=== PATIENT | female | born 1995 | race Caucasian/White ===

== ENCOUNTER 2024-03-25 18:17 | Emergency (ER) | payer OTHER, MEDICAID, SELFPAY ==
[2024-03-25 18:29] VITALS: BP 92/76; PULSE 71; RESP 18; TEMP 36.8; O2SAT 100
--- NOTE | 2024-03-25 18:36 | ED.URI ---
HPI - URI/Sore Throat General Chief Complaint: Upper Respiratory Infection Stated Complaint: congestion and ear pain Time Seen by Provider: 03/25/24 18:36 Source: patient Mode of arrival: ambulatory Limitations: no limitations History of Present Illness HPI Narrative: 28-year-old female presents with complaint of nasal congestion, sinus pressure, clogged sensation to bilateral ears for 4 days. Denies ear pain. Afebrile. Taking Claritin daily. Patient states she wants to make sure she does not have ear infection. States symptoms have improved since when they 1st started. All systems reviewed and negative except as noted above. Related Data Home Medications Medication Instructions Recorded Confirmed omeprazole 40 mg capsule,delayed 40 mg PO DAILY 03/25/24 03/25/24 release Allergies Allergy/AdvReac Type Severity Reaction Status Date / Time No Known Allergies Allergy Verified 03/25/24 18:36 Review of Systems Review of Systems: CONSTITUTIONAL: Denies fever, chills, or sweats. EYES: Denies visual changes, redness, or discharge. ENT: Denies rhinorrhea . Reports congestion, sinus congestion, ears clogged. Denies sore throat, or otalgia. CARDIOVASCULAR: Denies chest pain, palpitations, or edema. RESPIRATORY: Denies cough or dyspnea. GASTROINTESTINAL: Denies abdominal pain, nausea, vomiting, or diarrhea. GENITOURINARY: Denies dysuria or hematuria. SKIN: Denies rash or itching. MUSCULOSKELETAL: Denies back pain, joint pain, or myalgia. NEUROLOGIC: Denies headache, numbness, or weakness. PSYCHIATRIC: Denies anxiety or depression. All other systems reviewed are negative, except as documented in HPI. [facility] Family History Family History (Updated 02/26/24 @ 10:32 by Sury Hargrove CMA) Mother Cancer Social History Social History (Updated 02/26/24 @ 10:33 by Sury Hargrove CMA) Smoking status: Never smoker Tobacco type: cigarettes Smoking end date: 10/28/23 Alcohol intake: current Substance use: current Substance use type: marijuana Do You Feel Safe in your Home?: Yes Lack of Transportation: No Lack of Food: Never True Current Housing: I Have Housing Concerned About Future Housing: No Difficulty Paying Gas/Electric Bills: No Difficulty Paying for Meds: No Currently Unemployed: No Difficulty w/ Childcare or Family Care: No Comments At time of signature, agree with nursing past medical, surgical, social and family history. There is no relevant family history pertinent to the presenting complaint. Exam Narrative: GENERAL: This is a well-nourished, well-developed patient, in no apparent distress. HEAD: normocephalic, atraumatic. EYES: PERRL. Sclera clear/white. Vision is grossly intact. EARS: External ears normal, auditory canals clear and without drainage, fluid bilateral TM without erythema or perforation. Hearing grossly intact. NOSE: External nose normal with mild congestion, erythema to bilateral nares. THROAT: Mucous membranes moist, clear postnasal drainage NECK: Neck supple, non-tender without lymphadenopathy, masses or thyromegaly. CARDIOVASCULAR: Regular rate and rhythm without murmurs, gallops, or rubs. RESPIRATORY: Clear to auscultation. Breath sounds equal bilaterally. No wheezes, rales, or rhonchi. SKIN: warm, Dry, intact with no suspicious lesions or rash, good texture and turgor. NEURO: awake, alert, and oriented to person, place and time. There were no obvious focal neurologic abnormalities. EXTREMITIES: No joint tenderness, effusion, or edema noted. Course Course Level of Care: Express Care Visit Vital Signs Vital signs: Vital Signs Temperature 36.8 C 03/25/24 18: Pulse Rate 71 03/25/24 18: Respiratory Rate 18 03/25/24 18: Blood Pressure 92/76 L 03/25/24 18: Pulse Oximetry 100 03/25/24 18:29 Oxygen Delivery Room Air 03/25/24 18: Temperature 36.8 C 03/25/24 18:29 Pulse Rate 71
== END 2024-03-25 18:48 | disposition home or self-care (01) ==
PROVIDERS: Emergency Provider Nurse Practitioner Family
DX: J01.90 Acute sinusitis, unspecified (principal); H65.03 Acute serous otitis media, bilateral; Z87.891 Personal history of nicotine dependence; F12.90 Cannabis use, unspecified, uncomplicated
CPT/HCPCS: 99211; G0463

== ENCOUNTER 2024-06-23 15:06 | Emergency (ER) | payer OTHER, SELFPAY ==
--- NOTE | 2024-06-23 15:09 | ED.FEMALEGU ---
HPI - Female Genitourinary General Chief complaint: Urogenital-Female Stated complaint: uti symptoms Time Seen by Provider: 06/23/24 15:30 Source: patient, RN notes reviewed and old records reviewed Mode of arrival: ambulatory Limitations: no limitations History of Present Illness HPI Narrative: 28-year-old female presents to the [facility] with concerns for UTI or BV. Has a history of chronic BV. Denies any frequent or urgency. Has had vaginal discharge that is more than normal. Related Data Home Medications Medication Instructions Recorded Confirmed alprazolam 0.5 mg tablet 0.5 mg PO PRN PRN Anxiety 03/25/24 06/23/24 loratadine 10 mg tablet (Claritin) 10 mg PO DAILY PRN Allergy Symptoms 03/25/24 06/23/24 omeprazole 40 mg capsule,delayed 40 mg PO DAILY 03/25/24 06/23/24 release Allergies Allergy/AdvReac Type Severity Reaction Status Date / Time No Known Allergies Allergy Verified 06/23/24 15:13 Review of Systems Review of Systems: All systems reviewed & are unremarkable except as noted in HPI and below Constitutional: Constitutional: Reports no additional constitutional complaints Eyes: Eyes: Reports no additional eye complaints ENT: Reports system reviewed and no additional complaints, except as documented Cardiovascular: Cardiovascular: Reports no additional cardiovascular complaints, Denies chest pain and Denies dyspnea Respiratory: Respiratory: Reports no additional respiratory complaints, Denies chest congestion, Denies cough and Denies dyspnea Gastrointestinal: Gastrointestinal: Reports no additional gastrointestinal complaints, Denies abdominal pain, Denies nausea and Denies vomiting Genitourinary: Genitourinary: Reports as per HPI Musculoskeletal: Musculoskeletal: Reports no additional musculoskeletal complaints Integumentary/Breasts: Skin/Breast: Reports system reviewed and no additional complaints, except as docu Neurologic: Reports system reviewed and no additional complaints, except as documented Psychiatric: Psychiatric: Reports no additional psychiatric complaints Allergic/Immunologic: Allergic/Immunologic: Reports no additional allergic/immunologic complaints [facility] Family History Family History Mother Cancer Social History Social History Smoking status: Never smoker Tobacco type: cigarettes Smoking end date: 10/28/23 Alcohol intake: current Substance use: current Substance use type: marijuana Do You Feel Safe in your Home?: Yes Lack of Transportation: No Lack of Food: Never True Current Housing: I Have Housing Concerned About Future Housing: No Difficulty Paying Gas/Electric Bills: No Difficulty Paying for Meds: No Currently Unemployed: No Difficulty w/ Childcare or Family Care: No Comments At the time of my signature, I reviewed and agree with the nursing past medical, surgical, social, and family history. There is no relevant family history pertinent to the patient complaint. Exam Const: General: cooperative, healthy appearing, comfortable, no acute distress, well developed, alert and well nourished Nutritional Appearance: well nourished Orientation/consciousness: patient oriented x3 Limitations: no limitations HENMT: Head: normal to inspection Ears: hearing grossly normal bilaterally and external ears normal Face/Nose/Sinus: Normal external nose present, Normal nares present, Normal nasal mucous membranes and turbinates present, normal facial exam and face symmetric Face and sinus: normal facial exam and face symmetric Eyes: General: appearance normal, both eyes and all related structures Alignment and Position: alignment normal Periorbital: periorbital findings normal Neck: Neck: normal visual inspection, full ROM, no lymphadenopathy and no meningeal signs Chest: Chest palpation & inspection: normal inspection of the chest R
[2024-06-23 15:38] VITALS: BP 110/66; PULSE 88; RESP 16; TEMP 36.7; O2SAT 98
[2024-06-24 11:36] LABS: EDUAAPPEAR Clear; EDUABILI Negative; EDUABLOOD Negative; EDUACOLOR1 Dark; EDUAGLUCOSE Negative; EDUAKETONE Negative; EDUALEUKO Negative; EDUANITRATE Negative; EDUAPROTEIN Negative; EDUAUROBILI 0.2
== END 2024-06-23 15:46 | disposition home or self-care (01) ==
PROVIDERS: Emergency Provider Nurse Practitioner
DX: N76.0 Acute vaginitis (principal); Z87.891 Personal history of nicotine dependence; F12.90 Cannabis use, unspecified, uncomplicated
CPT/HCPCS: 81003; 99213; G0463

== ENCOUNTER 2024-10-20 14:51 | Emergency (ER) | payer OTHER, SELFPAY ==
[2024-10-20 15:10] VITALS: BP 116/70; PULSE 82; RESP 16; TEMP 36.8; O2SAT 100
[2024-10-20 15:23] LABS: EDUAAPPEAR Sediment; EDUABILI Negative (Negative); EDUABLOOD 2+ (Negative); EDUACOLOR1 Dark; EDUAGLUCOSE Negative (Negative); EDUAKETONE Negative (Negative); EDUALEUKO 2+ (Negative); EDUANITRATE Positive (Negative); EDUAPH 5.5; EDUAPROTEIN Trace (Negative); EDUASPGRAVITY 1.025; EDUAUROBILI 0.2
--- NOTE | 2024-10-20 15:23 | ED.FEMALEGU ---
HPI - Female Genitourinary General Chief complaint: Urogenital-Female Stated complaint: Possible UTI Time Seen by Provider: 10/20/24 15:23 Source: patient Mode of arrival: ambulatory Limitations: no limitations History of Present Illness HPI Narrative: 29-year-old female presents with complaint of urinary frequency, urgency, dysuria for the past 2 days. Afebrile. denies abdominal pain. Denies nausea vomiting. All systems reviewed and negative except as noted above. Related Data Home Medications ?Medication ?Instructions ?Recorded ?Confirmed ?Last Taken ?Type alprazolam 0.5 mg tablet 0.5 mg PO PRN PRN Anxiety 03/25/24 06/23/24 Unknown History loratadine 10 mg tablet (Claritin) 10 mg PO DAILY PRN Allergy Symptoms 03/25/24 06/23/24 Unknown History omeprazole 40 mg capsule,delayed 40 mg PO DAILY 03/25/24 06/23/24 Unknown History release Allergies Allergy/AdvReac Type Severity Reaction Status Date / Time No Known Allergies Allergy Verified 10/20/24 15:12 Review of Systems Review of Systems: CONSTITUTIONAL: Denies fever, chills, or sweats. EYES: Denies visual changes, redness, or discharge. ENT: Denies rhinorrhea, congestion, sore throat, or otalgia. CARDIOVASCULAR: Denies chest pain, palpitations, or edema. RESPIRATORY: Denies cough or dyspnea. GASTROINTESTINAL: Denies abdominal pain, nausea, vomiting, or diarrhea. GENITOURINARY: Reports dysuria, frequency, urgency. Denies hematuria. SKIN: Denies rash or itching. MUSCULOSKELETAL: Denies back pain, joint pain, or myalgia. NEUROLOGIC: Denies headache, numbness, or weakness. PSYCHIATRIC: Denies anxiety or depression. All other systems reviewed are negative, except as documented in HPI. [facility] Family History Family History Mother Cancer Social History Social History Smoking status: Never smoker Tobacco type: cigarettes Smoking end date: 10/28/23 Alcohol intake: current Substance use: current Substance use type: marijuana Do You Feel Safe in your Home?: Yes Lack of Transportation: No Lack of Food: Never True Current Housing: I Have Housing Concerned About Future Housing: No Difficulty Paying Gas/Electric Bills: No Difficulty Paying for Meds: No Currently Unemployed: No Difficulty w/ Childcare or Family Care: No Comments At time of signature, agree with nursing past medical, surgical, social and family history. There is no relevant family history pertinent to the presenting complaint. Exam Narrative: GENERAL: This is a well-nourished, well-developed patient, in no apparent distress. HEAD: normocephalic, atraumatic. EYES: PERRL. Sclera clear/white. Vision is grossly intact. EARS: External ears normal NOSE: External nose normal NECK: Neck supple, non-tender without lymphadenopathy, masses or thyromegaly. CARDIOVASCULAR: Regular rate and rhythm without murmurs, gallops, or rubs. RESPIRATORY: Clear to auscultation. Breath sounds equal bilaterally. No wheezes, rales, or rhonchi. SKIN: warm, Dry, intact with no suspicious lesions or rash, good texture and turgor. NEURO: awake, alert, and oriented to person, place and time. There were no obvious focal neurologic abnormalities. EXTREMITIES: No joint tenderness, effusion, or edema noted. Course Course Level of Care: Express Care Visit Vital Signs Vital signs: Vital Signs Temperature 36.8 C 10/20/24 15:10 Pulse Rate 82 10/20/24 15:10 Respiratory Rate 16 10/20/24 15:10 Blood Pressure 116/70 10/20/24 15:10 Pulse Oximetry 100 10/20/24 15:10 Oxygen Delivery Room Air 10/20/24 15:10 Temperature 36.8 C 10/20/24 15:10 Pulse Rate 82 10/20/24 15:10 Respiratory Rate 16 10/20/24 15:10 Blood Pressure 116/70 10/20/24 15:10 Pulse Oximetry 100 10/20/24 15:10 Oxygen Delivery Room Air 10/20/24 15:10 reviewed MDM - Female Genitourinary MDM Narrative Medical decision making narrative: urinalysis positive for leukocytes, nitrites, blood. Will treat patient with antibiotic due to patient's symptoms and lab findings. Urine culture ordered. Patient well-appearing, nontoxic. Patient is aware of diagnosis, understands and agrees to treatment plan. Anticipatory guidance given. Patient agrees to follow-up as directed and is aware of reasons to seek care at the emergency department. Portions of this record may have been created with voice recognition software Differential Diagnosis Differential diagnosis: Likely urinary tract infection Lab Data Labs: Lab Results 10/20/24 Range/Units 15:19 POC Urine Color Dark POC Urine Clarity Sediment POC Urine pH 5.5 POC Ur Specif [place] 1.025 POC Urine Protein Trace (Negative) POC Ur Glucose (UA) Negative (Negative) POC Urine Ketones Negative (Negative) POC Urine Blood 2+ (Negative) POC Urine Nitrite Positive (Negative) POC Urine Bilirubin Negative (Negative) POC Urine Urobilinogen 0.2 POC U Leukocyte Esteras 2+ (Negative) Discharge Plan Discharge Clinical Impression: Urinary tract infection Patient Disposition: Home, Self-Care Condition: Stable Instructions: Antibiotic Form, Urinary Tract Infection in Women (ED) Additional Instructions: take medications as prescribed. Take ibuprofen or Tylenol every 6-8 hours as needed for pain and fever. Drink at least 64 oz of water a day. Follow-up with your primary care physician if symptoms are not improving. Patient Language: Surinamese Prescriptions: New phenazopyridine [Pyridium] 200 mg tablet 200 mg PO TID PRN (Reason: pain) 3 Days Qty: 10 0RF amoxicillin-pot clavulanate [Augmentin] 500-125 mg tablet 1 tablet PO BID 5 Days Qty: 10 0RF No Action omeprazole 40 mg capsule,delayed release(DR/EC) 40 mg PO DAILY alprazolam 0.5 mg tablet 0.5 mg PO PRN PRN (Reason: Anxiety) loratadine [Claritin] 10 mg Tablet 10 mg PO DAILY PRN (Reason: Allergy Symptoms) Follow-up/Referrals: PHYSICIAN,ROAD HOGGER OPERATOR [Primary Care Provider] - Time of Disposition: 15:28
== END 2024-10-20 15:36 | disposition home or self-care (01) ==
PROVIDERS: Emergency Provider Nurse Practitioner Family
DX: N39.0 Urinary tract infection, site not specified (principal); B96.20 Unspecified Escherichia coli [E. coli] as the cause of diseases classified elsewhere
CPT/HCPCS: 81003; 87077; 87086; 87186; 99213; G0463

== ENCOUNTER 2024-10-31 15:02 | Emergency (ER) | payer OTHER, SELFPAY ==
--- NOTE | 2024-10-31 15:20 | ED_ITS ---
HPI - Female Genitourinary General Chief complaint: Urogenital-Female Stated complaint: UTI / Fever Time Seen by Provider: 10/31/24 15:20 Source: patient Mode of arrival: ambulatory Limitations: no limitations History of Present Illness HPI Narrative: Charlee is a 29-year-old female patient presenting to the clinic today with complaints of possible UTI/fever. She reports was treated for UTI and initially given Augmentin on October 20. Urine culture grew E coli and this was not susceptible so she was placed on Bactrim. Has 1 more dose of Bactrim left but she is complaining still continuing to have burning with urination, pelvic pain, back pain, and lower abdominal pain. She reports last menstrual period was approximately 2 weeks ago. Has had intercourse with a new partner and states that she noticed some discharge prior to having intercourse with this new partner. States that she is having some vaginal discharge but is not necessarily abnormal for her. Related Data Home Medications ?Medication ?Instructions ?Recorded ?Confirmed ?Last Taken ?Type alprazolam 0.5 mg tablet 0.5 mg PO PRN PRN Anxiety 03/25/24 06/23/24 Unknown H istory loratadine 10 mg tablet (Claritin) 10 mg PO DAILY PRN Allergy Symptoms 03/25/24 06/23/24 Unknown History omeprazole 40 mg capsule,delayed 40 mg PO DAILY 03/25/24 06/23/24 Unknown History release Allergies Allergy/AdvReac Type Severity Reaction Status Date / Time No Known Allergies Allergy Verified 10/31/24 15:36 Review of Systems Review of Systems: Pertinent positives per HPI. Patient denies any rash, headache, visual changes, dizziness, cough, runny nose, sore throat, shortness of breath, chest pain, palpitations, nausea, vomiting, diarrhea, constipation, abdominal pain PMFSH Family History Family History Mother Cancer Social History Social History Smoking status: Never smoker Tobacco type: cigarettes Smoking end date: 10/28/23 Alcohol intake: current Substance use: current Substance use type: marijuana Do You Feel Safe in your Home?: Yes Lack of Transportation: No Lack of Food: Never True Current Housing: I Have Housing Concerned About Future Housing: No Difficulty Paying Gas/Electric Bills: No Difficulty Paying for Meds: No Currently Unemployed: No Difficulty w/ Childcare or Family Care: No Comments At the time of my signature, I reviewed and agree with the nursing past medical, surgical, social, and family history. There is no relevant family history pertinent to the patient complaint. Exam Narrative: General: Well-developed, well nourished, in no apparent distress. Head: Normocephalic, atraumatic. Cardio: Regular rate and rhythm, s1 and s2 normal, no murmur appreciated. Resp: Clear to auscultation bilaterally, no rhonchi, rales, wheezing or rubs. Abdomen: Soft, pliable, bowel sounds present in all quadrants, tender to palpation over the suprapubic bladder, no organomegly, no CVAT tenderness. : Pelvic exam performed with (Jennifer ROTHMAN) at bedside. Verbal consent obtained from patient. Normal external female genitalia without lesions or masses, Urinary meatus: patent without discharge, Vagina: No lesions, masses, or purulent discharge, white discharge noted Cervix: pink without mass, lesions, purulent discharge- white discharge noted, no tenderness. Course Course Emergency Course: Portions of this record may have been created with voice recognition software. Level of Care: Express Care Visit Vital Signs Vital signs: Vital signs reviewed MDM - Female Genitourinary MDM Narrative Medical decision making narrative: At the time of visit patient is resting comfortably on the exam table. Patient appears to be nontoxic. Labs: Urinalysis negative for any sign of infection or blood. Gonorrhea, chlamydia, bacterial vaginosis, genital culture, and Trichomonas was sent to the lab Medications: Rocephin 500 mg IM given in the clinic today Plan: I suspect patient could possibly have PID. Prescription for doxycycline and Flagyl was sent to the pharmacy. Rocephin 500 mg IM given in the clinic today to cover for gonorrhea. Supportive measures were discussed with the patient and they voiced understanding discharge instructions and agrees to treatment plan. Return precautions reviewed Differential Diagnosis Differential diagnosis: Likely urinary tract infection, bacterial vaginosis, trichomoniasis, cervicitis, ovarian cyst, vaginitis, ruptured ovarian cyst, cyst of Bartholin's gland, cystitis, dysmenorrhea and other (STI) Discharge Plan Discharge Clinical Impression: Vaginal discharge, Pelvic pain Patient Disposition: Home, Self-Care Condition: Stable Instructions: Antibiotic Form, Pelvic Pain in Women (ED), Vaginal Discharge (ED) Additional Instructions: We have tested/treated you for STIs in the clinic today. Rocephin 500 mg IM was given to cover for chlamydia Will send in prescription for doxycycline and Flagyl. Doxycycline will cover chlamydia, and Flagyl cover Trichomonas/bacterial vaginosis. Avoid any sexual activity- includes oral, anal, or vaginal intercourse until you get results back and have completed any additional recommended treatment regimens. We will contact you if testing is positive and make sure your treatment was appropriate for the type of STI. If symptoms worsen after treatment recommend reevaluation with your PCP or Express care. Patient Language: Mauritanian Prescriptions: New metronidazole 500 mg tablet 500 mg PO Q12H 7 Days Qty: 14 0RF doxycycline monohydrate 100 mg capsule 100 mg PO BID 7 Days Qty: 14 0RF No Action omeprazole 40 mg capsule,delayed release(DR/EC) 40 mg PO DAILY alprazolam 0.5 mg tablet 0.5 mg PO PRN PRN (Reason: Anxiety) loratadine [Claritin] 10 mg Tablet 10 mg PO DAILY PRN (Reason: Allergy Symptoms) phenazopyridine [Pyridium] 200 mg tablet 200 mg PO TID PRN (Reason: pain) 3 Days Qty: 10 0RF sulfamethoxazole-trimethoprim [Bactrim DS] 800-160 mg tablet 1 tablet PO Q12H Qty: 14 0RF Follow-up/Referrals: Michael,Kae Reyes [Other] Stand Alone Forms: Work/School Release IP Time of Disposition: 16:13 Quality NIHSS Nursing Documentation ED NIHSS nursing documentation: reviewed/agree
[2024-10-31 15:24] VITALS: BP 108/60; PULSE 96; RESP 18; TEMP 36.9; O2SAT 100
[2024-10-31 15:33] LABS: EDUAAPPEAR Clear; EDUABILI Negative (Negative); EDUABLOOD Negative (Negative); EDUACOLOR1 Yellow; EDUAGLUCOSE Negative (Negative); EDUAKETONE Negative (Negative); EDUALEUKO Negative (Negative); EDUANITRATE Negative (Negative); EDUAPROTEIN Negative (Negative); EDUASPGRAVITY 1.025; EDUAUROBILI 0.2
[2024-10-31] MEDS: cefTRIAXone 500 MG, LIDOCAINE 1% LOCAL INJ 1 ML IM (16:12)
[2024-10-31 19:45] LABS: Trichomonas Vag PCR NOT DETECTED (NOT DETECTE)
[2024-10-31 20:09] LABS: Chlamydia trachomatis NOT DETECTED (NOT DETECTE); Neisseria gonorrhoeae PCR NOT DETECTED (NOT DETECTE)
[2024-11-04 07:39] LABS: Bacterial Vaginosis POSITIVE (NEGATIVE)
--- OUTSIDE RECORDS SUMMARY | 2024-11-07 23:36 | XMS_ITS | Encounter Summary ---
Author Organization [facility] Address [address] [place] [address]. [place], [place] [id number] [place] [id number] Care Team Providers Care Operations Assistant Name Role Phone Georges Triana MD Primary Care Provider Unavailable Encounter Details Date Type Department Care Team (Late st Contact Info) Description 10/08/2000 Abstract [facility] [place] [address] Sandip Skaggs MD [address] [place] [address] [place] [address] Social History Tobacco Use Types Packs/Day Years Used Date Smoking Tobacco: Never Assessed Comments Unknown Sex and Gender Information Value Date Recorded Sex Assigned at Not on file Legal Sex Female 8:27 PM CDT Gender Identity Not on file Sexual Orientation Not on file documented as of this encounter Plan of Treatment Not on file documented as of this encounter Visit Diagnoses Not on filedocumented in this encounter Care Teams Operations Assistant Relationship Specialty Start Date End Date Georges Triana MD PCP - General 12/01/14 documented as of this encounter
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
--- OUTSIDE RECORDS SUMMARY | 2024-11-07 23:36 | XMS_ITS | Encounter Summary ---
Author Organization [facility] Address [address] [place] [address]. [place], [place] [address] [place] [id number] Care Team Providers Care Health Promotion Manager Name Role Phone Rudy Tang NP Primary Care Provider + Reason for Visit * Reason Comments Abdominal Pain Encounter Details Date Type Department Care Team (Late st Contact Info) Description 07/25/2023 8:01 PM CDT - 07/25/2023 10:21 PM CDT Emergency [facility] [place] [address] Karli Diop PA [address] [place] [id number] Abdominal Pain Discharge Disposition: Home or Self Care (Routine Discharge) Social History Tobacco Use Types Packs/Day Years Used Date Smoking Tobacco: Every Day Smokeless Tobacco: Never Tobacco Cessation:Ready to Q uit: Not Asked; Counseling Given: Not Answered Alcohol Use Standard Drinks/Week Comments No 0 (1 standard drink = 0.6 oz pur e alcohol) Comments No Sex and Gender Information Value Date Recorded Sex Assigned at Not on file Legal Sex Female 8:27 PM CDT Gender Identity Not on file Sexual Orientation Not on file documented as of this encounter Last Filed Vital Signs Vital Sign Reading Time Taken Comments Blood Pressure 104/51 07/25/2023 10:00 PM CDT Pulse 73 07/25/2023 10:00 PM CDT Temperature 36.3 ??C (97.3 ??F) 07/25/2023 7:54 PM CD T Respiratory Rate 17 07/25/2023 10:00 PM CDT Oxygen Saturation 97% 07/25/2023 10:00 PM CDT Inhaled Oxygen Concentration - - Weight 77.1 kg (170 lb) 07/25/2023 7:54 PM CDT Height 157.5 cm (5' 2 ) 07/25/2023 7:54 PM CDT Body Mass Index 31.09 07/25/2023 7:54 PM CDT documented in this encounter Discharge Instructions * Discharge Instructions* KAMILAH Mauricio - 07/25/2023 10:00 PM CDT Please avoid caffeine, smoking, alcohol, NSAIDs, aspirin, fatty foods, spicy foods, etc as this cancause further irritation to your stomach lining. Eat a bland diet (bread, rice, applesauce, broths,etc) until your symptoms improve. Increase your fluids and get plenty of rest. Please follow up with your primary and the GI doctor as discussed. We will contact you if any of your results are positive or require changes to your treatment plan. If your symptoms persist or worsen, please return to the ER. Thank you for allowing me to care for you today. I have attached some suggested discharge instructions for you to use to aid in your recovery. Please take any medications prescribed to you as directed. If your symptoms are not improving or are significantly worsening, please return to the ER for further evaluation and treatment. Thank you, Karli Diop PA-C * Attachments The following attachments cannot be sent through Care Everywhere. * Gastritis Discharge Instructions (Nigerian) * Acid Reflux and GERD in Adults Discharge Instructions (Nigerian) documented in this encounter Medications at Time of Discharge hyoscyamine (LEVSIN) 0.125 MG TABLET DISPERSIBLE Take 1 tablet (0.125 mg total) by mouth every 4 (four) hours. ALPRAZolam (XANAX) 0.25 MG tablet Take 1 tablet (0.25 mg total) by mouth daily as needed. omeprazole (PRILOSEC) 40 MG capsule Take 1 capsule (40 mg total) by mouth daily. pantoprazole EC (PROTONIX) 40 MG tablet Take 1 tablet (40 mg total) by mouth daily for 15 days. 15 tablet 07/25/2023 08/09/2023 documented as of this encounter ED Notes * Roberto Palmer RN - 07/25/2023 10:11 PM CDT Provider discussed today's findings with the patient/family. The patient has been given informationregarding their treatment, follow up and concerning symptoms for which they should seek urgent or emergent attention. I have expressed the the importance of seeking attention should there be any new,or worsening symptoms or persistence of their condition. Patient verbalized understanding of the discharge instructions. * KAMILAH Mauricio - 07/25/2023 10:00 PM CDT [place], [place] EMERGENCY DEPARTMENT ENCOUNTER HISTORICAL INFORMATION Primary Care Doctor: RUDY TANG NP Patient information was obtained primarily from the patient, nursing notes. History/Exam limitations: None Provider at Bedside Date/Time Event User Comments 07/25/231954 Provider at Bedside Assessing Patient KARLI DIOP -- CHIEF COMPLAINT Abdominal Pain Chief Complaint Patient presents with Abdominal Pain HPI Charlee Barney is a 27-year-old female who presents with multiple complaints, most notably upperabdominal pain and acid reflux ongoing for many years. Patient states that she was prescribed Prilosec by her primary care provider but does not take it all the time. She was also prescribed hyoscyamine and alprazolam for anxiety. Any change in her symptoms from baseline. She also reports some mild dysuria for 1-1/2 weeks. She denies any hematuria, lower abdominal pain, vaginal bleeding, or fevers. She has never seen a GI doctor. States that she feels like her primary care provider has not explain her disease well and she is unsure what foods she can eat. PAST MEDICAL HISTORY Past Medical History: Diagnosis Date GERD (gastroesophageal reflux disease) IBS (irritable bowel syndrome) SURGICAL HISTORY History reviewed. No pertinent surgical history. CURRENT MEDICATIONS No current facility-administered medications for this encounter. Current Outpatient Medications: hyoscyamine (LEVSIN) 0.125 MG TABLET DISPERSIBLE, Take 1 tablet (0.125 mg total) by mouth every 4 (four) hours., Disp: , Rfl: pantoprazole EC (PROTONIX) 40 MG tablet, Take 1 tablet (40 mg total) by mouth daily for 15 days., Disp: 15 tablet, Rfl: 0 ALPRAZolam (XANAX) 0.25 MG tablet, Take 1 tablet (0.25 mg total) by mouth daily as needed., Disp: ,Rfl: omeprazole (PRILOSEC) 40 MG capsule, Take 1 capsule (40 mg total) by mouth daily., Disp: , Rfl: ALLERGIES No Known Allergies FAMILY HISTORY No family history on file. SOCIAL HISTORY Social History Socioeconomic History Marital status: Single Tobacco Use Smoking status: Every Day Smokeless tobacco: Never Substance and Sexual Activity Alcohol use: No Drug use: Yes Types: Marijuana REVIEW OF SYMPTOMS provided by: Patient General: No chills, fever, fatigue. Skin: No rashes. No erythema or edema. HEENT: No ear pain, sore throat, or sinus congestion. No vision changes. Respiratory: No cough. No shortness of breath. Cardiac: No chest pain. No palpitations. GI: + abd pain. No nausea, vomiting, or diarrhea. : + dysuria. No hematuria. MSK: No joint pain. No back or neck pain. Neuro: No headache. No dizziness or weakness. No slurred speech. No facial droop Physical Exam VITAL SIGNS: Filed Vitals: 07/25/23195307/25/232039 BP: 125/85 104/65 Pulse: 98 64 Resp: 20 18 Temp: 97.3 ??F (36.3 ??C) TempSrc: Temporal SpO2: 95% 96% Weight: 77.1 kg (170 lb) Height: 5' 2 (1.575 m) General: Awake and alert. Well nourished. Non-toxic appearing. No acute distress Head: Normocephalic. Atraumatic. Skin: Warm, dry. Good skin turgor. No visible rashes Eyes: Sclera normal. Conjunctiva normal. Lids and lashes normal. Lens normal. EOMs within normal limit. Ears: Normal external canals bilaterally. Hearing intact. Nose: Nose normal. No active discharge Oropharynx: Voice normal. Lips normal. Oral mucosa is pink and moist. Respiratory: No respiratory distress. CTA in all lung portillo. Cardiac: Normal rate, normal rhythm. No murmurs. Abdominal: Soft, non-distended. Mild upper abd tenderness without guarding. No palpable masses. MSK: ROM normal. No obvious deformities Neuro: AOX3. Answers all questions appropriately. Speech is normal. Mood/affect: mood/affect normal. Behavior normal. LABORATORY Results for orders placed or performed during the hospital encounter of 07/25/23 CBC W/DIFF AUTOMATED Result Value Ref Range WBC 9.6 4.5 - 11.0 x10'3/uL RBC 4.60 4.20 - 5.40 x10'6/uL HGB 14.1 12.0 - 16.0 G/DL HCT 42.5 38.0 - 48.0 % MCV 92.4 81.0 - 99.0 FL MCH 30.7 27.0 - 31.0 PG MCHC 33.2 32.0 - 36.0 G/DL RDW 12.5 11.5 - 14.5 % PLT 389 130 - 400 x10'3/uL MPV 9.5 9.3 - 12.2 FL DIFFERENTIAL TYPE AUTOMATED DIFFERENTIAL NEUTROPHILS 53.3 % LYMPHOCYTES 36.5 % MONOCYTES 6.1 % EOSINOPHILS 3.5 % BASOPHILS 0.4 % IMMATURE GRANS 0.2 % ABS. NEUTROPHILS TOTAL 5.11 1.80 - 7.70 x10'3/uL ABS. LYMPHOCYTES 3.51 1.00 - 4.80 x10'3/uL ABS. MONOCYTES 0.59 0.24 - 0.86 x10'3/uL ABS. EOSINOPHILS 0.34 0.04 - 0.36 x10'3/uL ABS. BASOPHILS 0.04 0.01 - 0.08 x10'3/uL ABS. IMMATURE GRANULOCYTES 0.02 0.00 - 0.49 x10'3/uL COMPREHENSIVE METABOLIC PANEL Result Value Ref Range GLUCOSE 71 70 - 99 MG/DL BUN 15 7 - 18 MG/DL CREATININE S/P/B 0.75 0.55 - 1.02 MG/DL SODIUM S/P/B 136 136 - 145 MMOL/L POTASSIUM S/P/B 3.9 3.5 - 5.1 MMOL/L CHLORIDE S/P/B 106 100 - 108 MMOL/L CO2 26.6 21 - 32 MMOL/L CALCIUM S/P/B 8.9 8.5 - 10.1 MG/DL BILIRUBIN TOTAL S/P/B 0.2 0.2 - 1.2 MG/DL TOTAL PROTEIN S/P/B 7.8 6.4 - 8.2 G/DL ALBUMIN S/P/B 3.7 3.4 - 5.0 G/DL AST 15 15 - 37 U/L ALT 29 14 - 55 U/L ALKALINE PHOSPHATASE S/P/B 79 50 - 136 U/L ANION GAP 3.4 (L) 5 - 15 MMOL/L BUN CREATININE RATIO 20.1 6 - 26 A/G RATIO 0.9 (L) 1.0 - 2.0 RATIO GFR ESTIMATE >90 >90 ML/MIN/1.73 M2 LIPASE Result Value Ref Range LIPASE 43 13 - 75 UNITS/L URINALYSIS Result Value Ref Range Specimen Type URINE CLEAN CATCH COLOR (U) LIGHT YELLOW TRANSPARENCY CLEAR SPECIFIC GRAVITY (U) 1.023 1.001 - 1.030 U PH 5.5 5.0 - 9.0 LEUKOCYTES (U) 500 (A) NEGATIVE NITRITES NEGATIVE NEGATIVE PROTEIN RANDOM (U) NEGATIVE <30 MG/DL GLUCOSE (U) NORMAL NORMAL MG/DL KETONES (U) NEGATIVE NEGATIVE MG/DL UROBILINOGEN NORMAL NORMAL MG/DL BILIRUBIN (U) NEGATIVE NEGATIVE MG/DL BLOOD (U) NEGATIVE NEGATIVE CULTURE & SENSITIVITY INDICATED? SPECIMEN SETUP FOR CULTURE WBC/HPF 4 <6 /HPF RBC/HPF 7 (H) <6 /HPF SQUAMOUS EPITHELIALS FEW /HPF POCT urine Result Value Ref Range URINE HCG TEST NEGATIVE Internal Control: [facility] ED Course as of 07/25/23 2200 Shona Jul 25, 20232056 URINE HCG TEST: NEGATIVE [AP] 2056 URINALYSIS(!) May be special service representative of UTI vs contamination [AP] 2057 CBC W/DIFF AUTOMATED No leukocytosis or anemia [AP] 2110 LIPASE: 43 Within normal limits. [AP] 2110 COMPREHENSIVE METABOLIC PANEL(!) No significant abnormalities. [AP] 2155 Discussed lab work with patient. She reports improvement of symptoms following Protonix medication. Lipase is normal. No abnormalities noted on CMP. Pyuria noted on urinalysis without white blood cells. Symptoms are not significantly concerning for urinary tract infection. Patient reports somemild dysuria ongoing for a week and a half. Offered antibiotic treatment for possible urinary tractinfection versus waiting for urine culture and she opted to wait for urinary culture. Recommended follow-up with primary care provider and she states she has an appointment next week. We discussed other causes of pyuria including bacterial vaginosis or other STDs. Recommended follow-up with primary care for more thorough STD evaluation as patient does not have any outward concerns for STDs. She is agreeable to this plan. Negative test. No leukocytosis. No indication for CT scan at this time as symptoms have been ongoing for many years without any acute change. Afebrile, nontoxic-appearing. Will discharge home with Prilosec and recommended follow-up with GI which referral was provided. Explicit return precautions discussed and patient verbalized understanding. [AP] ED Course User Index [AP] KAMILAH Mauricio Amount and/or Complexity of Data Reviewed Source of information/historian: Patient Clinical lab tests: I interpreted all labs ordered/resulted and reviewed these with the patient/patient's guardian. Impression/Disposition SNOMED CT(R) 1. Gastritis GASTRITIS 2. GERD (gastroesophageal reflux disease) GASTROESOPHAGEAL REFLUX DISEASE 3. Pyuria PYURIA Disposition: Discharge Medications pantoprazole (PROTONIX) injection 40 mg (40 mg Intravenous Given 07/25/232020) Current Discharge Medication List START taking these medications Details pantoprazole EC (PROTONIX) 40 MG tablet Take 1 tablet (40 mg total) by mouth daily for 15 days. Qty: 15 tablet, Refills: 0 Class: Eprescribe Pharmacy: [facility]/pharmacy #[id number] - [place], [place] - [facility] GISELL FLORES ( #: [phone]) KAMILAH MAURICIO Disclaimer: Portions of this note were created using [employer], a speech recognition software. Occasional wrong word or sound alike substitutions may have occurred due to the inherent limitations of voice recognition software. Please read the note carefully and use context to recognize when substitutions may have occurred. KAMILAH Mauricio 07/25/232201 Cosigned by Pavel Denise MD,PHD at 07/26/2023 7:05 AM CDT * Marya Ott RN - 07/25/2023 7:55 PM CDT Pt comes in with complaints of upper abdominal pain and heart burn that she has had problems with for years. Pt states she also has a smell to her urine that she says is abnormal. Pt denies nausea/vomiting. Pt states all she takes TUMS and Omeprazole that she does not take every day. Pt states she also has IBS and takes hycosamine for this. documented in this encounter Plan of Treatment Not on file documented as of this encounter Procedures Procedure Name Priority Date/Time Associated Diagnosis Comments POCT URINE (BACK OFFICE) STAT 07/25/2023 8:27 PM CDT HC URINALYSIS AUTO W/O MICRO STAT 07/25/2023 8:23 PM CDT URINE BACTERIA CULTURE Routine 8:23 PM CDT COMPREHENSIVE METABOLIC PANEL STAT 07/25/2023 8:23 PM CDT CBC W/DIFF AUTOMATED STAT 07/25/2023 8:23 PM CDT LIPASE STAT 07/25/2023 8:23 PM CDT documented in this encounter Results * POCT urine (07/25/2023 8:27 PM CDT) URINE HCG TEST NEGATIVE Internal Control: VALID us Karli TRIANA POINT OF CARE TEST ORDERABLES Final Result * CULTURE URINE (07/25/2023 8:23 PM CDT) SPEC DESCRIPTION URINE CLEAN CATCH 07/25/2023 8:48 PM CDT [facility] SPECIAL REQUESTS NO SPECIAL REQUEST 07/25/2023 8:48 PM CDT [facility] CULTURE RESULT POLYMICROBIAL GROWTH CONSISTENT WITH NORMAL GENITAL MARITZA. ?? SUSCEPTIBILITIES NOT ROUTINELY PERFORMED. 07/28/2023 7:34 AM CDT [facility] URINE SPECIMEN OBTAINED BY CLEAN CATCH PROCEDURE / Unknown 07/25/2023 8:23 PM CDT 07/25/2023 8:48 PM CDT Karli TRIANA MICROBIOLOGY - GENERAL ORDERAB LES Final Result [facility] [address] [place] [address], [place] [phone] * (ABNORMAL) URINALYSIS (07/25/2023 8:23 PM CDT) SPECIMEN TYPE URINE CLEAN CATCH 07/25/2023 8:27 PM CDT [facility] COLOR (U) LIGHT YELLOW 07/25/2023 8:47 PM CDT [facility] TRANSPARENCY CLEAR 07/25/2023 8:47 PM CDT [facility] SPECIFIC GRAVITY (U) 1.023 1.001 - 1.030 07/25/2023 8:47 PM CDT [facility] U PH 5.5 5.0 - 9.0 07/25/2023 8:47 PM CDT [facility] LEUKOCYTES (U) 500(A) NEGATIVE 07/25/2023 8:47 PM CDT [facility] NITRITES NEGATIVE NEGATIVE 07/25/2023 8:47 PM CDT [facility] PROTEIN RANDOM (U) NEGATIVE <30 MG/DL 07/25/2023 8:47 PM CDT [facility] GLUCOSE (U) NORMAL NORMAL MG/DL 07/25/2023 8:47 PM CDT [facility] KETONES MG/DL (U) NEGATIVE NEGATIVE MG/DL 07/25/2023 8:47 PM CDT [facility] UROBILINOGEN NORMAL NORMAL MG/DL 07/25/2023 8:47 PM CDT [facility] BILIRUBIN (U) NEGATIVE NEGATIVE MG/DL 07/25/2023 8:47 PM CDT [facility] BLOOD (U) NEGATIVE NEGATIVE 07/25/2023 8:47 PM CDT [facility] CULTURE & SENSITIVITY INDICATED? SPECIMEN SETUP FOR CULTURE 07/25/2023 8:47 PM CDT [facility] WBC/HPF 4 <6 /HPF 07/25/2023 8:47 PM CDT [facility] RBC/HPF 7(H) <6 /HPF 07/25/2023 8:47 PM CDT [facility] SQUAMOUS EPITHELIALS FEW /HPF 07/25/2023 8:47 PM CDT [facility] URINE SPECIMEN OBTAINED BY CLEAN CATCH PROCEDURE / Unknown 07/25/2023 8:23 PM CDT us Karli TRIANA URINE ORDERABLES Final Result [facility] [address] [place] [address], [place] [phone] * LIPASE (07/25/2023 8:23 PM CDT) LIPASE 43 13 - 75 UNITS/L 07/25/2023 9:00 PM CDT [facility] 07/25/2023 8:23 PM CDT us Karli TRIANA LABORATORY Final Result [facility] [address] [place] [address], * (ABNORMAL) COMPREHENSIVE METABOLIC PANEL (07/25/2023 8:23 PM CDT) GLUCOSE 71 70 - 99 MG/DL 07/25/2023 9:00 PM CDT [facility] BUN 15 7 - 18 MG/DL 07/25/2023 9:00 PM CDT [facility] CREATININE S/P/B 0.75 0.55 - 1.02 MG/DL 07/25/2023 9:00 PM CDT [facility] SODIUM S/P/B 136 136 - 145 MMOL/L 07/25/2023 9:00 PM CDT [facility] POTASSIUM S/P/B 3.9 3.5 - 5.1 MMOL/L 07/25/2023 9:00 PM CDT [facility] CHLORIDE S/P/B 106 100 - 108 MMOL/L 07/25/2023 9:00 PM CDT [facility] CO2 26.6 21 - 32 MMOL/L 07/25/2023 9:00 PM CDT [facility] CALCIUM S/P/B 8.9 8.5 - 10.1 MG/DL 07/25/2023 9:00 PM CDT [facility] BILIRUBIN TOTAL S/P/B 0.2 0.2 - 1.2 MG/DL 07/25/2023 9:00 PM CDT [facility] Comment: THIS ASSAY IS NOT RECOMMENDED FOR PATIENTS UNDERGOING TREATMENT WITH ELTROMBOPAG DUE TO THE POTENTIAL FOR FALSELY ELEVATED RESULTS. TOTAL PROTEIN S/P/B 7.8 6.4 - 8.2 G/DL 07/25/2023 9:00 PM T [facility] ALBUMIN S/P/B 3.7 3.4 - 5.0 G/DL 07/25/2023 9:00 PM T [facility] AST 15 15 - 37 U/L 07/25/2023 9:00 PM T [facility] ALT 29 14 - 55 U/L 07/25/2023 9:00 PM T [facility] ALKALINE PHOSPHATASE S/P/B 79 50 - 136 U/L 07/25/2023 9:00 PM T [facility] ANION GAP 3.4(L) 5 - 15 MMOL/L 07/25/2023 9:00 PM T [facility] BUN CREATININE RATIO 20.1 6 - 26 07/25/2023 9:00 PM [facility] A/G RATIO 0.9(L) 1.0 - 2.0 RATIO 07/25/2023 9:00 PM [facility] GFR ESTIMATE >90 >90 ML/MIN/1.7 3 M2 07/25/2023 9:00 PM T [facility] Comment: NOTE: eGFR is not calculated for patients <18 years of age. This is an estimated GFR calculation using the new CKD EPI creatinine equation without race and so does not require a correction factor for race. This estimated GFR should not be used for calculating drug doses. 07/25/2023 8:23 PM CDT us Karli TRIANA LABORATORY Final Result [facility] [address] [place] [address], [place] [phone] * CBC W/DIFF AUTOMATED (07/25/2023 8:23 PM CDT) [facility] WBC 9.6 4.5 - 11.0 x10'3/uL 07/25/2023 8:44 PM CDT [facility] RBC 4.60 4.20 - 5.40 x10'6/uL 07/25/2023 8:44 PM CDT [facility] HGB 14.1 12.0 - 16.0 G/DL 07/25/2023 8:44 PM CDT [facility] HCT 42.5 38.0 - 48.0 % 07/25/2023 8:44 PM CDT [facility] MCV 92.4 81.0 - 99.0 FL 07/25/2023 8:44 PM CDT [facility] MCH 30.7 27.0 - 31.0 PG 07/25/2023 8:44 PM CDT [facility] MCHC 33.2 32.0 - 36.0 G/DL 07/25/2023 8:44 PM CDT [facility] RDW 12.5 11.5 - 14.5 % 07/25/2023 8:44 PM CDT [facility] PLT 389 130 - 400 x10'3/uL 07/25/2023 8:44 PM CDT [facility] MPV 9.5 9.3 - 12.2 FL 07/25/2023 8:44 PM CDT [facility] DIFFERENTIAL TYPE AUTOMATED DIFFERENTIAL 07/25/2023 8:44 PM CDT [facility] NEUTROPHILS % 53.3 % 07/25/2023 8:44 PM CDT [facility] LYMPHOCYTES % 36.5 % 07/25/2023 8:44 PM CDT [facility] MONOCYTES % 6.1 % 07/25/2023 8:44 PM CDT [facility] EOSINOPHILS 3.5 % 07/25/2023 8:44 PM CDT [facility] BASOPHILS 0.4 % 07/25/2023 8:44 PM CDT [facility] IMMATURE GRANS % 0.2 % 07/25/20 8:44 PM CDT [facility] ABS. NEUTROPHILS TOTAL 5.11 1.80 - 7.70 x10'3/uL 07/25/2023 8:44 PM CDT [facility] ABS. LYMPHOCYTES 3.51 1.00 - 4.80 x10'3/uL 07/25/2023 8:44 PM CDT [facility] ABS. MONOCYTES 0.59 0.24 - 0.86 x10'3/uL 07/25/2023 8:44 PM CDT [facility] ABS. EOSINOPHILS 0.34 0.04 - 0.36 x10'3/uL 07/25/2023 8:44 PM CDT [facility] ABS. BASOPHILS 0.04 0.01 - 0.08 x10'3/uL 07/25/2023 8:44 PM CDT [facility] ABS. IMMATURE GRANULOCYTES 0.02 0.00 - 0.49 x10'3/uL 07/25/2023 8:44 PM CDT [facility] 07/25/2023 8:23 PM CDT us Karli TRIANA LABORATORY Final Result [facility] [address] [place] [address], [place] [phone] documented in this encounter Visit Diagnoses Diagnosis Gastritis- Primary Unspecified gastritis and gastroduodenitis without mention of hemorrhage GERD (gastroesophageal reflux disease) Esophageal reflux Pyuria Other nonspecific finding on examination of urine documented in this encounter Administered Medications Inactive Administered Medications - up to 3 most recent administrations Medication Order MAR Action Action Date Dose Rate Site pantoprazole (PROTONIX) injection 40 mg 40 mg, Intravenous, Once, 1 dose, On Shona 07/25/23 at 1999, Reconstitute each 40 mg vial with 10 mL normal saline to a final concentration of 4 mg/mL. Administer intravenously over a period of a least 2 minutes. Given 07/25/2023 8:21 PM CDT 40 mg documented in this encounter Active and Recently Administered Medications Times are shown in CDT. Scheduled Medication Order 07/23/2023 07/24/2023 07/25/2023 pantoprazole (PROTONIX) injection 40 mg (COMPLETED) 40 mg, Intravenous, Once, 1 dose, On Shona 07/25/23 at 1999, Reconstitute each 40 mg vial with 10 mL normal saline to a final concentration of 4 mg/mL. Administer intravenously over a period of a least 2 minutes. 2020 (Given - Provid er: Carol Miranda RN) documented in this encounter Care Teams Health Promotion Manager Relationship Specialty Start Date End Date Rudy Tang NP PCP - General FAMILY PRACTICE 07/25/23 documented as of this encounter
--- OUTSIDE RECORDS SUMMARY | 2024-11-07 23:36 | XMS_ITS | Encounter Summary ---
Author Organization [facility] Address [address] [place] [address]. [place], [place] [address] [place] [id number] Care Team Providers Care Biology Adjunct Instructor Name Role Phone Georges Triana MD Primary Care Provider Unavailable Encounter Details Date Type Department Care Team (Late st Contact Info) Description 12/01/2014 Emergency [facility] [place] [address] Shree Mcgarry MD Social History Tobacco Use Types Packs/Day Years Used Date Smoking Tobacco: Never Assessed Comments Unknown Sex and Gender Information Value Date Recorded Sex Assigned at Not on file Legal Sex Female 8:27 PM CDT Gender Identity Not on file Sexual Orientation Not on file documented as of this encounter Plan of Treatment Not on file documented as of this encounter Visit Diagnoses Diagnosis Infection of genitourinary tract antepartum (HHS/HCC) Infections of genitourinary tract antepartum documented in this encounter Care Teams Biology Adjunct Instructor Relationship Specialty Start Date End Date Georges Triana MD PCP - General 12/01/14 documented as of this encounter
--- OUTSIDE RECORDS SUMMARY | 2024-11-07 23:36 | XMS_ITS | Clinical Summary ---
Author Organization [facility] Address [address] [place] [address]. [place], [place] [id number] [place] [address] Care Team Providers Care Burrer Marker Axle Name Role Phone Kae Rodriguez NP Primary Care Provider + Allergies No known active allergies Medications ALPRAZolam (XANAX) 0.25 MG tablet Take 1 tablet (0.25 mg total) by mouth daily as needed. Active omeprazole (PRILOSEC) 40 MG capsule Take 1 capsule (40 mg total) by mouth daily. Active hyoscyamine (LEVSIN) 0.125 MG TABLET DISPERSIBLE Take 1 tablet (0.125 mg total) by mouth every 4 (four) hours. Active Active Problems No known active problems Social History Tobacco Use Types Packs/Day Years [...] on file Sexual Orientation Not on file Last Filed Vital Signs Vital Sign Reading [...] Mass Index 31.09 07/25/2023 7:54 PM CDT Plan of Treatment Health Maintenance Due Date Last Done Comments Cervical Cancer Screening Pap Smear (Age 21 to 29) Every 3 Years 1995 Cervical Cancer Screening 1995 Annual Physical 1998 Pneumococcal Vaccine: Pediatrics (0 to 5 Years) and At-Risk Patients (6 to 64 Years) (1 of 2 - PCV) 2001 HPV Vaccines (2 - 3-dose series) 08/01/2012 07/04/2012 Hepatitis C 2013 COVID-19 Vaccine (2 - season) 2024 04/01/2023 Influenza Adult (#1) 2024 11/14/2002 DTaP, Tdap and Td Vaccines (8 - Td or Tdap) 06/16/2025 06/16/2015, 06/23/2010, 06/24/2001, Additional history exists Hepatitis B Vaccines Completed 04/28/1996, 1995, 1995 Meningococcal Vaccine Completed 07/04/2012, 010 RSV Immunizations Under 20 Months Aged Out No longer eligible based on patient's age to complete this topic Insurance [employer] Care Teams Burrer Marker Axle Relationship Specialty Start Date End Date Kae Rodriguez EXTENSION WORKER PCP - General FAMILY PRACTICE 07/25/23
--- OUTSIDE RECORDS SUMMARY | 2024-11-07 23:36 | XMS_ITS | Encounter Summary ---
Author Organization [facility] Address [address] [place] [address]. [place], [place] [address] [place] [address] Care Team Providers Care Drum Sander Name Role Phone Georges Triana MD Primary Care Provider Unavailable Encounter Details Date Type Department Care Team (Late st Contact Info) Description 08/31/2017 [place] [address] Georges Triana MD Social History Tobacco Use Types Packs/Day [...] on filedocumented in this encounter Care Teams Drum Sander Relationship Specialty Start Date End Date Georges Triana MD PCP - General 12/01/14 documented as of this encounter
--- OUTSIDE RECORDS SUMMARY | 2024-11-07 23:36 | XMS_ITS | Encounter Summary ---
Author Organization [facility] Address [address] [place] [address]. [place], [place] [id number] [place] [address] Care Team Providers Care Wall Insulation Sprayer Name Role Phone Kae Rodriguez NP Primary Care Provider + Encounter Details Date Type Department Care Team (Latest Contact Info) Description 07/25/2023 Travel Social History Tobacco Use Types Packs/Day Years [...] on filedocumented in this encounter Care Teams Wall Insulation Sprayer Relationship Specialty Start Date End Date Kae Rodriguez NP PCP - General FAMILY PRACTICE 07/25/23 documented as of this encounter
--- OUTSIDE RECORDS SUMMARY | 2024-11-07 23:37 | XMS_ITS | Encounter Summary ---
Author Organization [facility] Address [address] [place] [address] Phone Care Team Providers Care Coremaker Apprentice Name Role Phone Kathleen Bailey NP Primary Care Provider [phone] [phone] Reason for Visit * Consultation (Routine) - Closed Specialty Diagnoses / Procedures Referred By Capri cyr Referred To Contact Pediatric Dermatology Diagnoses Rash and other nonspecific skin eruption Say Watters MD Phone: tel: fax: [facility] (All Locations) Referral ID Status Reason Start Date Expiration Date V isits Requested Visits Authorized [id number] Closed Specialty Services Required 02/15/2022 03/17/2023 25 25 Encounter Details Date Type Department Care Team (Latest Contact Info) Description 02/07/2023 2:30 PM CDT Procedure visit [facility] Dermatology [address] [place] [address] [address] [place] [phone] Alla Hong MD [address] [place] [address] [address] [place] [address] Seborrheic dermatitis, unspecified (Primary Dx); Tinea versicolor; Neoplasm of uncertain behavior of skin Social History Tobacco Use Types Packs/Day Years Used Date Smoking Tobacco: Never Assessed Comments Unknown Sex and Gender Information Value Date Recorded Sex Assigned at Not on file Legal Sex Female 6:14 PM HEALTH EVALUATOR Gender Identity Not on file Sexual Orientation Not on file documented as of this encounter Patient Instructions * Patient Instructions* Allyson Bosch MD - 02/07/2023 2:30 PM CDT [facility] Alla Hansen MD [facility] Division of Dermatology, Department of Medicine [phone] SKIN CARE REGIMEN MORNIN. Wash face with a gentle cleanser 2. Then apply an antioxidant (eg. The Ordinary Vitamin C 23% Suspension, Skinceuticals Vitamin CE Ferulic acid) 3. After the anti-oxidant dries, apply an SPF at least 30 or higher 4. You can apply makeup after sunscreen EVENIN. Wash face with a cleanser 2. Once skin is dry apply a Vitamin A based cream (retinol & adapalene are over the counter; tretinoin is prescription). These products can cause dryness and irritation, so use every other night or as tolerated. 3. It is ok to apply a moisturizer on top that contains hyaluronic acid 4. The nights you do not use a vitamin A cream, you can use a moisturizer alone or a growth factor/peptide product SUGGESTED PRODUCTS: Cleanser: Neutrogena Hydroboost Hydrating Cleansing Gel Antioxidant: SkinCeuticals CE Ferulic, Skinceuticals Resveratrol, Revision Vitamin C+ Correcting Complex 30%, The Ordinary Vitamin C 23% suspension, Maelove Glow Maker SPF: EltaMD UV Clear SPF 46, Revision Intellishade TruPhysical, Alastin Hydratint, La Clarisa Posay UltraSheer Antihelios Retinol: SkinMedica, Differin 0.1% gel (adapalene), Neutrogena Rapid Wrinkle Repair Moisturizer: SkinCeuticals Triple Lipid Restore, SkinMedica HA5, Maelove Battery Technician Gel, La Clarisa Posay Hyal B5 Growth Factor/peptides: SkinMedica TNS Essential Serum or Recovery Complex, Sente Dermal Repair Cream [facility] Providers: [facility] (including Urgent Care) and [facility] [phone] for appointments documented in this encounter Ordered Prescriptions Prescription Sig Dispense Quantity Refills Last Filled Start Date End Date clobetasoL (TEMOVATE) 0.05 % external solutionIndication s:Dermatosis of the Scalp Apply topically 2 (two) times a day As needed for scalp itching 50 mL 1 02/07/2023 ketoconazole (NIZORAL) 2 % creamIndications:T inea versicolor Apply topically 2 (two) times a day To back for yeast rash 30 g 1 02/07/2023 3 documented in this encounter Progress Notes * Alla Hansen MD - 02/07/2023 2:30 PM CDT [facility] [address] [place] [address] EXCISION CONSULT NOTE NAME: Charlee Neumann Barney : 1995 CC: cyst of right chest HPI: Charlee Barney presents today for evaluation of cyst on the right chest. Duration: few years. Symptoms: growing. Prior treatment: none. Patient also notes: -Rash of back, diagnosed as yeast in the past. -Telangiectasia of left forehead -KP of bilateral arms and legs -Itchy scalp -Asks about skin recommendations Personal history of skin cancer: none Family history of skin cancer: none ROS: Constitutional: No fever, no chills, no unintended weight loss Neurological: No headache, no dizziness, no vision changes Cardiovascular: No chest pain, no palpitations Respiratory: No shortness of breath, no coughing Allergies/Medications/PMH: Reviewed in EMR. PHYSICAL EXAM: Vitals Signs: There were no vitals taken for this visit. GENERAL: Appears well. No acute distress. ORIENTATION: Alert and oriented x3. MOOD/AFFECT: Normal affect. CHAPMAN SKIN TYPE: II FACE: Telangiectasia of left forehead EARS: No abnormalities noted. SCALP/HAIR: No abnormalities noted. EYES/EYELIDS: No scleral icterus. No abnormalities noted of conjunctiva or eyelids. LIPS/ORAL MUCOSA: No abnormalities noted. NECK: No abnormalities noted. CHEST: pink subcutaneous nodule of right chest DIGITS/NAILS: No cyanosis, clubbing, or nail abnormality. EXTREMITIES (RUE): accentuation of hair follicles bilateral upper arm EXTREMITIES (LUE): No abnormalities noted. --Lesion identified and verified with patient's assistance using a handheld mirror and/or referringprovider photos. Patient agrees with location. ASSESSMENT AND PLAN: 1. Neoplasm of the right chest - Treatment options discussed included: standard excision - Will plan for a standard excision - Indications for surgery include: growing - Likely repair options reviewed including: complex linear repair, intermediate linear repair - Risks and benefits were discussed including, but not limited to, scarring, bleeding, infection, pain, swelling, bruising, dyspigmentation, asymmetry, deformity, recurrence, need for further treatment, allergy, motor and sensory nerve injury. - The patient and/or family members demonstrated understanding of the points discussed - Time was provided for patient questions - Special considerations: NO pacemaker, defibrillator, epi sensitivity, allergy to anesthesia, latex allergy 2. Prophylaxis for surgery. - None required 3. Medication restrictions for surgery. - none 4. Skin Care -Provided daily skin care recommendations -Wash face in am with a cleanser, then apply antioxidant (eg. Vitamin CE Ferulic) -Once anti-oxidant dries, apply SPF at least 30 or higher -Wash face in pm with cleanser then apply Vitamin A based cream (eg. Retinol or tretinoin) -Start retinol OTC qhs, SER including dryness and irritation. Recommend using every other night or as tolerated -Ok to apply moisturizer on top containing hyaluronic acid (eg. Neutrogena Hydroboost) Photos obtained, pre-operative instructions provided. 5. Telangiectasia -Consider PDL (VBeam) laser to improve appearance of lesions, needs at least 3 treatments. -Laser reviewed at length including treatment expectations, need for multiple treatment and risks including pain, swelling, redness, blistering, hyper/hypopigmentation, texture change, scarring. 6. Tinea versicolor -Considered oral fluconazole though interactions noted with lexapro and norco, will send topical ketoconazole cream BID 7. Seborrheic dermatitis -Start topical clobetasol solution daily for itch Patient will proceed with surgery today. EXCISION WITH CLOSURE NAME: Charlee Barney : 1995 ATTENDING SURGEON: Alla Hansen MD RECORD CHANGER ASSEMBLER SURGEON: Allyson Bosch MD PROCEDURE: Excision with intermediate layered linear closure PREOPERATIVE DIAGNOSIS: cyst POSTOPERATIVE DIAGNOSIS: Same INDICATION: growing SIZE OF LESION PRE-OP: 0.9 cm x 1.4 cm EXCISED SIZE: 1.1 cm x 1.6 cm LOCATION: right chest PERIOPERATIVE MEDICATIONS: None ANESTHESIA: 0.5% mepivacaine and epinephrine 1:200,000 TYPE OF CLOSURE: Layered closure with -Dermal - 4-0 Monocryl -Epidermal - 4-0 Prolene DRESSING: Vaseline and a pressure dressing COMMENT: After informed consent was obtained, the patient was positioned on the surgery table in a supine position. Using a surgical marking pen, a design was created around the lesion. The lesional area was then prepped with alcohol and infiltrated with 1.0% polocaine with epinephrine, 1:200,000 as above. Thereafter, the skin was cleaned with Chlorhexidine and draped with sterile towels. Using a15 blade scalpel, an incision was made directly over the lesion through the full thickness of the dermis extending to the subcutaneous tissue. The 15 blade and scissors were used to dissect the subcutaneous tissue away from the lesion. The specimen was obtained and then placed in formalin and sent for routine histopathological evaluation. An intermediate layered closure was performed using sutures and skin stitch as outlined above. The final suture line measured 3.5 cm. Estimated blood loss wasminimal. No complications were entertained. Wound care instructions were provided for the patient in verbal and written form including a 24-hour telephone number in case of emergency. The patient will return as needed.The patient will return for suture removal in 14 days. POST-OP PRESCRIPTIONS: Tylenol prn for pain. Alla Hansen MD Forming Operatorglass science engineer Division of Dermatology documented in this encounter Plan of Treatment Not on file documented as of this encounter Procedures Procedure Name Priority Date/Time Associated Diagnosis Comments SURGICAL PATHOLOGY Routine 02/07/2023 12 :00 AM CDT Neoplasm of uncertain behavior of skin documented in this encounter Results * Surgical pathology (02/07/2023 12:00 AM CDT) Tissue (Skin, excision) 02/07/2023 02/08/2023 8:56 AM CDT Narrative [facility] - 02/12/2023 4:43 PM CDT EPIC results best viewed via link to PDF [facility] [address] [place], [place] [address]., ??[address], [place] [address] ? [email or web address] Note to Patients: ??This report may contain a detailed description of human tissue sent by a health care provider to the laboratory for pathologic evaluation. ??The content of this report is essential for diagnosis and may provide important critical findings. ??This information may be unfamiliar to patients to review without a medical professional present. ?? It is advised that the patient review this report in the presence of a health care provider who can answer questions and explain the details. FINAL REPORT Patient Information: PATIENT NAME: ??CHARLEE BARNEY ? SEX: ??F ? : ??1995 (Age: 27) ? Specimen Information: COLLECTED: ??02/07/2023 ? RECEIVED: ??02/08/2023 ? REPORTED: ??02/12/2023 ? Submitting Physician Information: Alla Hansen M.D. [facility], [address] [place] [address], [address] [place], [place] ??[address], ?? Additional Physicians: Say Watters MD ?? DERMATOPATHOLOGY REPORT RESULTS ?? DIAGNOSIS: SKIN, RIGHT CHEST, EXCISION: ? DERMATOFIBROMA ? Note: The lesion does not extend to the margins of the sections examined. exr/isr By this signature, I attest that the above diagnosis is based upon my personal examination of the slides(and/or other material indicated in the diagnosis). Barb Arzate M.D. ?? Report Electronically Reviewed and Signed Out By ??Barb Arzate M.D. 02/12/2023 16:43:48 CLINICAL INFORMATION R/O CYST. SPECIMEN DATA MICROSCOPIC DESCRIPTION: There is a proliferation of spindle and stellate cells that are arranged in fascicles between thickened collagen bundles. (D23.9) GROSS DESCRIPTION: Received in a formalin-containing bottle is an elliptical piece of pale massey, finely scaling, hair-bearing skin and adipose tissue measuring 1.2 by 0.9 by 1.2 cm. There is no orienting suture. The surgical margins are inked blue. The specimen is sectioned into 6 pieces and submitted in 3 cassettes with the tips in the first cassette. The tips are tagged orange for orienting purposes. ??Due to shrinkage, measurements may be different than those at time of procedure. Due to the nature of the specimen, extended processing is required. jn/cf Clerical Data A; 092[address] The Characteristics of some immunohistochemical and immunofluorescence stains as well as in-situ hybridization tests were determined by the [facility] in ongoing quality assurance supervisor chassis and in compliance with regulations drawn from the Clinical Laboratory Improvement Act of 1988 (CLIA '88). These tests may rely on the use of analyte specific reagents that are subject to specific labeling requirements by the [place] FDA, and may only be performed in a facility that is certified by the [facility] as a high-complexity laboratory under CLIA '88. ??These tests are used for clinical purposes and are not investigational. ??For lab developed tests, the validation has been reviewed; the performance is considered acceptable for patient testing. Alla Elaine MD LAB PATHOLOGY O RDERABLES Final Result [facility] [address] [place] [id number] documented in this encounter Visit Diagnoses Diagnosis Seborrheic dermatitis, unspecified- Primary Tinea versicolor Pityriasis versicolor Neoplasm of uncertain behavior of skin documented in this encounter Care Teams Coremaker Apprentice Relationship Specialty Start Date End Date Kathleen Bailey NP PCP - General Emergency Medicine 11/29/21 documented as of this encounter
--- OUTSIDE RECORDS SUMMARY | 2024-11-07 23:37 | XMS_ITS | Clinical Summary ---
Author Organization [address] Address [address] [place] [address] Care Team Providers Care Rental Sales Agent Name Role Phone Kathleen Bailey NP Primary Care Provider [phone] [phone] Allergies No known active allergies Medications amoxicillin (amoxicillin) 500 mg tablet/capsule amoxicillin 500 mg capsule Active chlorhexidine (PERIDEX) 0.12 % solution 12/20/19 22 Active clotrimazole-betam ethasone (LOTRISONE) cream Apply topically 2 (two) times a day 12/06/19 21 Active dicyclomine (BENTYL) 10 mg capsule dicyclomine 10 mg capsule 12/23/19 21 Active escitalopram (LEXAPRO) 10 mg tablet Take 10 mg by mouth daily 12/23/19 21 Active HYDROcodone-acetam inophen (NORCO) 5-325 mg per tablet 12/20/19 22 Active HYDROcodone-acetam inophen (NORCO) 5-325 mg per tablet hydrocodone 5 mg-acetaminophen 325 mg tablet Active hydrOXYzine (ATARAX) 50 mg tablet Take 50 mg by mouth 3 (three) times a day as needed 12/23/19 21 Active omeprazole (PriLOSEC) 40 mg capsule omeprazole 40 mg capsule,delayed release 12/23/19 21 Active omeprazole (PriLOSEC) 40 mg capsule 01/18/20 22 Active ondansetron ODT (ZOFRAN-ODT) 4 mg disintegrating tablet ondansetron 4 mg disintegrating tablet 08/12/20 20 Active metroNIDAZOLE (METROCREAM) 0.75 % creamIndications:A cne Rosacea Apply to face daily 45 g 11 02/24/20 22 Active clobetasoL (TEMOVATE) 0.05 % external solutionIndication s:Dermatosis of the Scalp Apply topically 2 (two) times a day As needed for scalp itching 50 mL 1 02/08/20 23 Active Active Problems Problem Noted Date Diagnosed Date Abdominal pain, left lower quadrant 11/16/2019 Left ovarian cyst 11/16/2019 GERD (gastroesophageal reflux disease) 9 ADI (generalized anxiety disorder) 07/29/2019 Moderate episode of recurrent major depressive d isorder 07/29/2019 PID (pelvic inflammatory disease) 07/29/2019 Social History Tobacco Use Types Packs/Day Years Used Date Smoking Tobacco: Never Assessed Personal Safety Answer Date Recorded Getting School Help Needed Not on file 10/19 Comments Unknown Sex and Gender Information Value Date Recorded Sex Assigned at Not on file Legal Sex Female 6:14 PM ASSISTANT READING TEACHER Gender Identity Not on file Sexual Orientation Not on file Last Filed Vital Signs Vital Sign Reading Time Taken Comments Blood Pressure 151/83 12/13/2019 2:31 PM ASSISTANT READING TEACHER Pulse 90 12/13/2019 2:31 PM ASSISTANT READING TEACHER Temperature 36.8 ??C (98.2 ??F) 12/13/2019 2:31 PM CS T Respiratory Rate - - Oxygen Saturation 95% 12/13/2019 2:31 PM ASSISTANT READING TEACHER Inhaled Oxygen Concentration - - Weight 65.2 kg (143 lb 11.9 oz) 12/13/2019 2:31 PM ASSISTANT READING TEACHER Height 160 cm (5' 3 ) 12/13/2019 2:31 PM ASSISTANT READING TEACHER Body Mass Index 25.46 12/13/2019 2:31 PM ASSISTANT READING TEACHER Plan of Treatment Health Maintenance Due Date Last Done Comments Cervical Cancer Screening 1995 Depression Screening 1995 Hepatitis C Screening 1995 Varicella Vaccines (1 of 2 - 13+ 2-dose series) 2008 HPV Vaccines (2 - 3-dose series) 08/01/2012 07/04/2012 Regular Well Visit/Exam 18-64 2013 Influenza Vaccine (#1) 2024 11/14/2002 DTaP/Tdap/Td Vaccine (8 - Td or Tdap) 06/16/2025 06/16/2015, 06/23/2010, 06/24/2001, Additional history exists Pneumococcal vaccine <65 Aged Out No longer eligible based on patient's age to complete this topic Insurance [employer] [facility] [employer] [facility] Care Teams Rental Sales Agent Relationship Specialty Start Date End Date Kathleen Bailey NP PCP - General Emergency Medicine 11/29/21
--- OUTSIDE RECORDS SUMMARY | 2024-11-07 23:37 | XMS_ITS | Encounter Summary ---
Author Organization [facility] Healthcare Address [address] [place] [address] Care Team Providers Care Railroad Baggage Porter Name Role Phone Juan Diego Live DO Primary Care Provider [phone] Encounter Details Date Type Department Care Team (Late st Contact Info) Description 12/13/2019 2:30 PM FILLING ROOM OPERATOR - 12/13/2019 7:06 PM FILLING ROOM OPERATOR Hospital Encounter [address] [address] Unknown, Mert Lyon Jr., MD [address] [place] [id number] Discharge Disposition: Discharge to home or self care Social History Tobacco Use Types Packs/Day Years Used Date Smoking Tobacco: Never Assessed Comments Unknown Sex and Gender Information Value Date Recorded Sex Assigned at Not on file Legal Sex Female 6:14 PM FILLING ROOM OPERATOR Gender Identity Not on file Sexual Orientation Not on file documented as of this encounter Last Filed Vital Signs Vital Sign Reading Time Taken Comments Blood Pressure 151/83 12/13/2019 2:31 PM FILLING ROOM OPERATOR Pulse 90 12/13/2019 2:31 PM FILLING ROOM OPERATOR Temperature 36.8 ??C (98.2 ??F) 12/13/2019 2:31 PM CS T Respiratory Rate - - Oxygen Saturation 95% 12/13/2019 2:31 PM FILLING ROOM OPERATOR Inhaled Oxygen Concentration - - Weight 65.2 kg (143 lb 11.9 oz) 12/13/2019 2:31 PM FILLING ROOM OPERATOR Height 160 cm (5' 3 ) 12/13/2019 2:31 PM FILLING ROOM OPERATOR Body Mass Index 25.46 12/13/2019 2:31 PM FILLING ROOM OPERATOR documented in this encounter Discharge Disposition Disposition Code Departure Means Destination Discharge to home or self care documented in this encounter Plan of Treatment Not on file documented as of this encounter Procedures Procedure Name Priority Date/Time Associated Diagnosis Comments CBC WITH AUTO DIFFERENTIAL Routine 12/13/2019 3:21 PM FILLING ROOM OPERATOR LIPASE Routine 12/13/2019 3:21 PM FILLING ROOM OPERATOR COMPREHENSIVE METABOLIC PANEL Routine 12/13/2019 3:21 PM FILLING ROOM OPERATOR documented in this encounter Results * Lipase (12/13/2019 3:21 PM FILLING ROOM OPERATOR) Lipase 16 13 - 60 U/L [facility] 12/13/2019 3:21 PM FILLING ROOM OPERATOR 12/13/2019 3:24 PM FILLING ROOM OPERATOR Narrative Resulting Agency Comment ER Kathleen Bailey HOUSEKEEPING AID LAB BLOOD ORDERABLES Amanda l Result [facility] [address] [phone] * Comprehensive metabolic panel (12/13/2019 3:21 PM FILLING ROOM OPERATOR) Pathologist [facility] Sodium 137 135 - 145 mmol/L [facility] Potassium 3.9 3.3 - 5.1 mmol/L [facility] Chloride 103 96 - 108 mmol/L [facility] Carbon Dioxide 26 22 - 32 mmol/L [facility] Anion Gap 8 7 - 16 [facility] Glucose 93 70 - 100 mg/dL [facility] BUN 12 8 - 25 mg/dL [facility] Creatinine 0.6 0.5 - 1.1 mg/dL [facility] Comment: NOTE: Estimated GFR (Cockroft-Gault) will NOT be calculated unless patient Height and Weight were entered. Also, Kidney Disease Stage (GFR) and Estimated GFR (Cockroft-Gault) will NOT be calculated if Creatinine result is <0.2. Kidney Disease Stage >90 mL/MIN [facility] Comment: NOTE; ??The GFR is an estimated value using the creatinine, sex, age, and race of the patient. THE Estimated Kidney Disease GFR is validated for AGES 18-70 YEARS STAGE ?mL/Min ?DESCRIPTION ??1 ?90 mL/min or more ?Normal or elevated GFR ??2 ? 60-89 mL/min ?Mildly decreased GFR ??3 ? 30-59 mL/min ?Moderately decreased GFR ??4 ? 15-29 mL/min ?Severely decreased GFR ??5 ? <15 mL/min ? Kidney failure or on dialysis Est GFR (Cockcroft-G) 131 ml/MIN [facility] Comment: Estimated GFR(Cockroft-Gault)is used to calculate patient medication dosage Calcium 9.2 8.6 - 10.3 mg/dL [facility] Total Protein 7.5 6.4 - 8.3 g/dL [facility] Albumin 4.2 3.5 - 5.0 g/dL [facility] Globulin 3.3 2.3 - 3.5 gm/dL [facility] Albumin/Globulin Ratio 1.3 1.1 - 1.8 [facility] Total Bilirubin 0.2 0.0 - 1.2 mg/dL [facility] AST 16 0 - 32 U/L [facility] ALT 13 0 - 33 U/L [facility] Alkaline Phosphatase 73 35 - 104 U/L [facility] 12/13/2019 3:21 PM FILLING ROOM OPERATOR 12/13/2019 3:24 PM FILLING ROOM OPERATOR Narrative Resulting Agency Comment ER us Kathleen Bailey HOUSEKEEPING AID LAB BLOOD ORDERABLES Amanda aniyah Result [facility] [address] [place] [address], [facility] [phone] * CBC with auto differential (12/13/2019 3:21 PM FILLING ROOM OPERATOR) [facility] Signature WBC 5.4 3.8 - 9.9 X10 3/ul [facility] RBC 4.39 3.90 - 5.20 x10 6/ul [facility] Hemoglobin 13.7 11.9 - 15.5 g/dL [facility] Hct 40.7 35.6 - 45.5 % [facility] MCV 92.7 81.3 - 96.4 fl [facility] MCH 31.2 27.1 - 33.3 pg [facility] MCHC 33.7 32.3 - 35.7 g/dl [facility] RDW 12.3 11.1 - 14.9 % [facility] Plt Count 280 150 - 400 x10 3/ul [facility] MPV 9.5 9.1 - 12.3 fl [facility] Neut % 65.1 % [facility] Immature Gran % 0.2 % [facility] Lymph % 22.9 % [facility] [place] % 9.6 % [facility] Eos % 1.8 % [facility] AUTO BASO % 0.4 % [facility] NEUTROPHIL ABS # 3.5 1.7 - 6.5 x10 3/ul [facility] Immature Gran # 0.0 0.0 - 0.1 x10 3/ul [facility] Absolute Lymphs (auto) 1.2 0.8 - 3.3 x10 3/ul [facility] Absolute Monos (auto) 0.5 0.2 - 0.8 x10 3/ul [facility] Absolute Eos (auto) 0.1 0.0 - 0.5 x10 3/ul [facility] BASOPHIL ABS # 0.0 0.0 - 0.1 x10 3/ul [facility] Nucleat RBC Rel Count 0.0 #/100WBC [facility] NRBC abs 0.00 0.00 - 0.01 x10 3/ul [facility] Absolute Neutrophils 3,500 200 - 8,000 /ul [facility] 12/13/2019 3:21 PM FILLING ROOM OPERATOR 12/13/2019 3:24 PM FILLING ROOM OPERATOR Narrative Resulting Agency Comment ER us Kathleen Bailey HOUSEKEEPING AID LAB BLOOD ORDERABLES Amanda l Result [facility] [address] [phone] documented in this encounter Visit Diagnoses Not on filedocumented in this encounter Care Teams Railroad Baggage Porter Relationship Specialty [place] [address] [place] [address] PCP - General 12/13/19 11/28/21 documented as of this encounter
--- OUTSIDE RECORDS SUMMARY | 2024-11-07 23:37 | XMS_ITS | Encounter Summary ---
Author Organization [facility] Address [address] [place] [address] Phone Care Team Providers Care Cardiovascular Invasive Specialist Name Role Phone Kathleen Bailey NP Primary Care Provider [phone] Reason for Referral * Consultation (Routine) - Closed Specialty Diagnoses / Procedures Referred By Capri t Referred To Contact Pediatric Dermatology Diagnoses Rash and other nonspecific skin eruption Say Watters MD Phone: tel: fax: [facility] (All Locations) Referral ID Status Reason Start Date Expiration Date V isits Requested Visits Authorized [id number] Closed Specialty Services Required 02/15/2022 03/17/2023 25 25 Question Answer Please select the performing region: [facility] (All Locations) [[id number]] # of visits: 1 Reason for Visit * Consultation (Routine) - Closed Specialty Diagnoses / Procedures Referred By Conttiff t Referred To Contact Pediatric Dermatology Diagnoses Rash and other nonspecific skin eruption Say Watters MD Phone: tel: fax: [facility] (All Locations) Referral ID Status Reason Start Date Expiration Date V isits Requested Visits Authorized [id number] Closed Specialty Services Required 02/15/2022 03/17/2023 25 25 Encounter Details Date Type Department Care Team (Late st Contact Info) Description 02/23/2022 2:15 PM CDT Office Visit [facility] Dermatology [address] [facility] [address] [place] [phone] Say Watters MD [address] [place] [address] Epidermal inclusion cyst (Primary Dx); Rosacea, unspecified; Keratosis pilaris; Melanocytic nevi of trunk; Telangiectasia; Hypertrophic scar; Rash and other nonspecific skin eruption Social History Tobacco Use Types Packs/Day Years Used Date Smoking Tobacco: Never Assessed Comments Unknown Sex and Gender Information Value Date Recorded Sex Assigned at Not on file Legal Sex Female 6:14 PM EXHIBITIONS AND COLLECTIONS MANAGER Gender Identity Not on file Sexual Orientation Not on file documented as of this encounter Ordered Prescriptions Prescription Sig Dispense Quantity Refills Last Filled Start Date End Date metroNIDAZOLE (METROCREAM) 0.75 % creamIndications:Ac ne Rosacea Apply to face daily 45 g 11 02/23/2022 documented in this encounter Progress Notes * Say Watters MD - 02/23/2022 2:15 PM CDT Charlee Barney 1995 [id number] IOV DERMATOLOGY CLINIC VISIT 02/23/2022 CHIEF COMPLAINT: KP and spots at chest and forehead HISTORY OF PRESENT ILLNESS Charlee Barney is a 26 y.o. White female who presents today for a spot check. Here today to establish care. Has family hx of NMSC (father). Today she notes concerns for: -Cyst on chest. -Red spot on forehead present x 6 months. -Scar on forehead. -Bumpy skin on upper arms and thighs. No other concerns today. No other new, growing, changing, painful, or otherwise concerning lesions. Derm Hx: History of Skin cancer: No History of Melanoma: No Family Hx of Melanoma: No Family hx of NMSC: Yes (father) Hx of blistering sunburn: Yes HISTORY: HISTORY/MEDS/ALLERGIES: reviewed in chart, initial visit patient questionnaire reviewed and scannedto chart REVIEW OF SYSTEMS The patient-completed Review of Systems was reviewed and was scanned as an attachment to this encounter. PHYSICAL EXAM ~1cm firm subcutaneous nodule on the right lateral upper chest. Telangectasia at forehead. Well healed linear scar at glabella. Mild background erythema without papules or comedones on face. Multiple fine keratotic papules on the bilateral upper arms. Brown and massey macules and papules with even borders and colors scattered on the back OTHERWISE: GENERAL: Appears well. No acute distress. ORIENTATION: Alert and oriented x3. MOOD/AFFECT: Normal affect. FACE: No abnormalities noted. EARS: No abnormalities noted. HAIR: No abnormalities noted. EYES/EYELIDS: No scleral icterus. No abnormalities noted of conjunctiva or eyelids. LIPS/ORAL MUCOSA: No abnormalities noted. NECK: No abnormalities noted. CHEST: No abnormalities noted. EXTREMITIES (RUE): No abnormalities noted. EXTREMITIES (LUE): No abnormalities noted. DIGITS/NAILS: No cyanosis, clubbing, or nail abnormality. ASSESSMENT AND PLAN (MDM) #Epidermal Inclusion Cyst - right chest Nature of condition discussed. Benign, reassurance provided. Treatment options discussed, including: standard excision using local anesthesia. Referred to Dr. Davis for excision. 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 Discussed laser treatment if desired, pt to consider. #Hypertrophic scar - forehead Discussed option for ILK, pt declines today. Discussed option for laser treatment, pt to consider. #Keratosis Pilaris Benign, pt reassured. Recommend OTC creams containing salicylic acid, lactic acid, AHA, and/or Urea. Ex: CeraVe SA, Eucerin roughness relief, or Amlactin. Avoid scrubbing/exfoliating area. Gentle skin care reviewed and recommended. #Rosacea Start Metronidazole cream. Discussed OTC Azelaic acid. Sun protection reviewed and recommended, including daily use of mineral sunscreen SPF 30+ Education provided on common triggers, including: sun, heat, alcohol, spicy foods, caffeine, etc. Laser treatment if telangiectatic component remains bothersome. #Melanocytic Nevi of back Benign. Patient reassured. Photoprotection education provided including use of broad-spectrum (UVA/UVB) sunblock with at leastan SPF of 30, photoprotective clothing and hats, during any significant sun exposure. Skin cancer education provided and ABCDEs of melanoma reviewed. Recommend monthly self skin exams. Patient instructed to return for any new or changing lesions. RTC: prn Patient was instructed to return sooner should they develop any new, changing and/or worsening lesions, side effects of any recommended treatments, or as needed. SCRIBE ATTESTATION By signing my name, I, Thu Paz, attest that this documentation has been prepared under the direction and in the presence of Dr. Watters. 02/23/2022. ATTENDING ATTESTATION I personally performed the services described in this documentation, reviewed and edited the documentation which was dictated to the scribe in my presence, and it accurately records my words and actions. Of note, this documentation might have been completed in a delayed fashion although the patientwas indeed seen on the same date as the scribe note. Say Watters MD documented in this encounter Plan of Treatment Scheduled Referrals Name Type Priority Associated Diagnoses Orde r Schedule Ambulatory referral to Pediatric Dermatology Outpatient Referral Routine Rash and other nonspecific skin eruption Expected: 03/01/2022 (Approximate), Expires: 02/15/2023 documented as of this encounter Visit Diagnoses Diagnosis Epidermal inclusion cyst- Primary Sebaceous cyst Rosacea, unspecified Keratosis pilaris Other specified congenital anomaly of skin Melanocytic nevi of trunk Telangiectasia Other and unspecified capillary diseases Hypertrophic scar Keloid scar Rash and other nonspecific skin eruption documented in this encounter Historical Medications * This list may reflect changes made after this encounter. ondansetron ODT (ZOFRAN-ODT) 4 mg disintegrating tablet ondansetron 4 mg disintegrating tablet 0 omeprazole (PriLOSEC) 40 mg capsule 2 omeprazole (PriLOSEC) 40 mg capsule omeprazole 40 mg capsule,delayed release 1 hydrOXYzine (ATARAX) 50 mg tablet Take 50 mg by mouth 3 (three) times a day as needed 1 HYDROcodone-acetami nophen (NORCO) 5-325 mg per tablet hydrocodone 5 mg-acetaminophen 325 mg tablet HYDROcodone-acetami nophen (NORCO) 5-325 mg per tablet 12/20/19 2 2 escitalopram (LEXAPRO) 10 mg tablet Take 10 mg by mouth daily 1 dicyclomine (BENTYL) 10 mg capsule dicyclomine 10 mg capsule 1 clotrimazole-betame thasone (LOTRISONE) cream Apply topically 2 (two) times a day 1 chlorhexidine (PERIDEX) 0.12 % solution 2 amoxicillin (amoxicillin) 500 mg tablet/capsule amoxicillin 500 mg capsule added in this encounter Care Teams Cardiovascular Invasive Specialist Relationship Specialty Start Date End Date Kathleen Bailey NP PCP - General Emergency Medicine 11/29/21 documented as of this encounter
--- OUTSIDE RECORDS SUMMARY | 2024-11-07 23:37 | XMS_ITS | Encounter Summary ---
Author Organization [facility] [place] [facility] Address [address] [place] [address] Phone Care Team Providers Care Sales Marketing Director Name Role Phone Kathleen Bailey NP Primary Care Provider [phone] Reason for Visit * Consultation (Routine) - Closed Specialty Diagnoses / Procedures Referred By Capri cyr Referred To Contact Pediatric Dermatology Diagnoses Rash and other nonspecific skin eruption Say Watters MD Phone: tel: fax: [facility] (All Locations) Referral ID Status Reason Start Date Expiration Date V isits Requested Visits Authorized [id number] Closed Specialty Services Required 02/15/2022 03/17/2023 25 25 Encounter Details Date Type Department Care Team (Latest Contact Info) Description 02/22/2023 1:00 PM CDT Procedure visit [facility] Dermatology [facility] [address] [place] [phone] Neoplasm of uncertain behavior of skin (Primary Dx) Social History Tobacco Use Types Packs/Day Years Used Date Smoking Tobacco: Never Assessed Comments Unknown Sex and Gender Information Value Date Recorded Sex Assigned at Not on file Legal Sex Female 6:14 PM PROJECT ENGINEERING MANAGER Gender Identity Not on file Sexual Orientation Not on file documented as of this encounter Progress Notes * Dee Valentine CMA - 02/22/2023 1:00 PM CDT S: Patient returns 2 weeks following Excisional Surgery for a cyst on the right chest. Patient has no complaints. O: Alert and oriented times four. Suture line is clean, dry and intact, with excellent epidermal approximation. There is appropriate erythema, edema and minimal bruising. There is no evidence of hematoma, infection or dehiscence. A/P: 2 weeks s/p Excision. Healing well. Photos obtained. yes RTC 4-6 weeks for additional scar evaluation if desired Sunscreen and sun protection briefly discussed. F/u with general screen roller at least twice yearly Patient seen and examined by attending, who agrees with plan of care. Their edits noted prior to cosigning. documented in this encounter Plan of Treatment Not on file documented as of this encounter Visit Diagnoses Diagnosis Neoplasm of uncertain behavior of skin- Primary documented in this encounter Care Teams Sales Marketing Director Relationship Specialty Start Date End Date Kathleen Bailey NP PCP - General Emergency Medicine 11/29/21 documented as of this encounter
--- OUTSIDE RECORDS SUMMARY | 2024-11-07 23:37 | XMS_ITS | Referral Summary ---
Author Organization [address] Address [address] [place] [address] Care Team Providers Care Roving Inspector Name Role Phone Kathleen Bailey NP Primary Care Provider [phone] Allergies No known active allergies Medications amoxicillin [...] on file Legal Sex Female 6:14 PM ACCOUNTS PAYABLE LEAD Gender Identity Not on file Sexual Orientation Not on file Last Filed Vital Signs Vital Sign Reading Time Taken Comments Blood Pressure 151/83 12/13/2019 2:31 PM ACCOUNTS PAYABLE LEAD Pulse 90 12/13/2019 2:31 PM ACCOUNTS PAYABLE LEAD Temperature 36.8 ??C (98.2 ??F) 12/13/2019 2:31 PM CS T Respiratory Rate - - Oxygen Saturation 95% 12/13/2019 2:31 PM ACCOUNTS PAYABLE LEAD Inhaled Oxygen Concentration - - Weight 65.2 kg (143 lb 11.9 oz) 12/13/2019 2:31 PM ACCOUNTS PAYABLE LEAD Height 160 cm (5' 3 ) 12/13/2019 2:31 PM ACCOUNTS PAYABLE LEAD Body Mass Index 25.46 12/13/2019 2:31 PM ACCOUNTS PAYABLE LEAD Plan of Treatment Not on file Insurance [employer] [facility] Care Teams Roving Inspector Relationship Specialty Start Date End Date Kathleen Bailey NP PCP - General Emergency Medicine 11/29/21
--- OUTSIDE RECORDS SUMMARY | 2024-11-07 23:38 | XMS_ITS | Data Portability ---
Author Organization [facility] Address [address] [place] [address] Assessment No assessment recorded. Plan of Treatment Reminders Order Date Submit Date Provider Last Modified By Organization Details Last Modified Time Details Appointments None recorded. Lab None recorded. Referral audiologis t referral 2022 023 [facility], [address], [address], [place], [address], 16:50:29 Procedures None recorded. Surgeries None recorded. Imaging None recorded. Medication Orders None recorded. Patient TargetsNo targets recorded. Patient InstructionsNo instructions recorded. 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 Allergies Allergen ID Allergen Name Allergen Category Reaction Reaction Severity Criticality Documentation Date Start Date Code Code System Note Provider Name and Address Organization Details Recorded Time 421624 wheat gluten extract food Not available Not available Not available 01/14/2023 71917 81 RxNorm Monae LongLPN jamaal, [facility] 16:10:33 106238 lactase medicatio n Not available Not available Not available 01/14/2023 02518 RxNorm Monae LongLPN jamaal, [facility] 16:10:38 Medications Name Sig Start Date Stop Date Status Note LastModified by Organization Details LastModified Time amoxicillin 500 mg capsule 01/14 completed Not Available Not Available Not Available promethazin e-DM 6.25 mg-15 mg/5 mL oral syrup TAKE 5 ML (ORAL) AT BEDTIME NEEDED active Not Available Not Available No t Available doxycycline hyclate 100 mg capsule TAKE 1 CAPSULE BY MOUTH TWICE A DAY FOR 7 DAYS 01/14 completed Not Available Not Available Not Available azithromyci n 250 mg tablet TAKE 2 TABLETS BY MOUTH TODAY, THEN TAKE 1 TABLET DAILY FOR 4 DAYS active Not Available Not Available No t Available fluconazole 150 mg tablet TAKE 1 TAB BY MOUTH TODAY. REPEAT DOSE IN 3 DAYS 01/14 completed Not Available Not Available Not Available hydrocodone 5 mg-acetamin ophen 325 mg tablet 01/14 completed Not Available Not Available Not Available fluconazole 200 mg tablet TAKE 1 TABLET EVERY WEEK BY ORAL ROUTE FOR 14 DAYS. 01/14 completed Not Available Not Available Not Available prednisone 20 mg tablet TAKE 2 TABLETS BY MOUTH EVERY DAY FOR 5 DAYS active Not Available Not Available No t Available metronidazo le 500 mg tablet TAKE 1 TABLET BY MOUTH TWICE A DAY FOR 7 DAYS 01/14 completed Not Available Not Available Not Available omeprazole 40 mg capsule,del ayed release TAKE 1 CAPSULE BY MOUTH EVERY DAY active Not Available Not Available No t Available alprazolam 0.5 mg tablet TAKE 0.5 TABLETS BY MOUTH TWICE A DAY NEEDED. active Not Available Not Available No t Available ofloxacin 0.3 % ear drops INSTILL 10 DROPS INTO AFFECTED EAR(S) ONCE DAILY DIRECTED 01/14 completed Not Available Not Available Not Available amoxicillin 875 mg tablet TAKE 1 TABLET BY MOUTH EVERY 12 HOURS WITH MEALS FOR 7 DAYS 01/14 completed Not Available Not Available Not Available alprazolam 0.25 mg tablet TAKE 1 TABLET BY MOUTH EVERY DAY NEEDED active Not Available Not Available No t Available hyoscyamine ER 0.375 mg tablet,exte nded release,12 hr TAKE 1 TABLET BY MOUTH EVERY 12 HOURS NEEDED FOR 30 DAYS active Not Available Not Available No t Available nystatin 100,000 unit/gram topical cream 01/26 completed Not Available Not Available Not Available clotrimazol e-betametha sone 1 %-0.05 % topical cream PLEASE SEE ATTACHED FOR DETAILED DIRECTION S 01/14 completed Not Available Not Available Not Available metronidazo le 0.75 % topical cream 01/14 completed Not Available Not Available Not Available methylpredn isolone 4 mg tablets in a dose pack TAKE 6 TABLET (ORAL) THE FIRST DAY AND THE REMAINING DIRECTED active Not Available Not Available No t Available ondansetron 4 mg disintegrat ing tablet 01/14 completed Not Available Not Available Not Available fluticasone propionate 50 mcg/actuati on nasal spray,suspe nsion USE 2 SPRAYS IN EACH NOSTRIL EVERY DAY active Not Available Not Available No t Available clotrimazol e 1 % topical cream PLEASE SEE ATTACHED FOR DETAILED DIRECTION S 01/14 completed Not Available Not Available Not Available dicyclomine 10 mg capsule 01/26 completed Not Available Not Available Not Available amoxicillin 875 mg-potassiu m clavulanate 125 mg tablet TAKE 1 TABLET BY MOUTH EVERY 12 HOURS FOR 10 DAYS 01/14 completed Not Available Not Available Not Available escitalopra m 10 mg tablet 01/26 completed Not Available Not Available Not Available ciprofloxac in 0.3 %-dexametha sone 0.1 % ear drops,suspe nsion INSTILL 4 DROPS INTO AFFECTED EAR(S) TWICE A DAY FOR 7 DAYS 01/14 completed Not Available Not Available Not Available nitrofurant oin monohydrate /macrocryst als 100 mg capsule TAKE 1 CAPSULE BY MOUTH EVERY 12 HOURS FOR 5 DAYS active Not Available Not Available No t Available chlorhexidi ne gluconate 0.12 % mouthwash 01/14 completed Not Available Not Available Not Available Vitals Date Recorded Respiratory rate Body height Body temperature Body mass index (BMI) Body weight Heart rate Systolic blood pressure Diastolic blood pressure Provider Name and Address Organization Details Last Updated DateTime 3 18 /min 160.02 cm 99.7 [degF] 30.3 kg/m2 18238.3 g 83 /min 124 mm[Hg] 76 mm[Hg] Monae Viramontes [place] [facility] 16:12:33 Social History Question Answer Notes LastModified by Organizat ion Details LastModified Time Tobacco Smoking Status Current Every Day Smoker smokes marijuana daily Monae hinton, [place] [facility] 01/14/2023 16:11:11 Do You Have An Advance Directive? No Information not available 01/14/2023 In The 14 Days Before Symptom Onset, Have You Had Close Contact With A Laboratory-confir med COVID-19 While That Case Was Ill? No Information not available 01/14/2023 In The 14 Days Before Symptom Onset, Have You Had Close Contact With A Person Who Is Under Investigation For COVID-19 While That Person Was Ill? No Information not available 01/14/2023 Have You Been To An Area Known To Be High Risk For COVID-19? No Information not available 01/14/2023 What Was The Date Of Your Most Recent Tobacco Screening? 01/14/2023 Information not available 01/14/2023 How Much Tobacco Do You Smoke? 0.25 PPD Information not available 01/14/2023 Sex: Unknown Functional Status None recorded. Mental Status None recorded. Family History Nothing Reported. Medical History No medical history recorded. Gynecological HistoryNo gynecological history recorded. Obstetrics History GPAL:G 0 P 0 0 0 0 Past Encounters Encounter ID Performer Location Encounter Start Date Encounter Closed Date Diagnosis/Indication Diagnosis SNOMED-CT Code Diagnosis ICD10 Code Diagnosis Note [id number] Tom Rodriguez MD [facility] [address] [place] [address] 01/14/2023 16:04:54 01/15/2023 09:25:48 Dysfunction of bilateral eustachian tubes 8892495931 867940 H69.93 she just started Flonase follow back after audiogram Chronic rhinitis 5182328 6 J31.0 Temporoman dibular joint disorder 64260043 M26.609 soft diet anti-infla mmatories Health Concerns Section Related Observation LastModified by Organization Detai ls LastModified Time None Recorded Concern Status LastModified by Organization Details LastModified Time None Recorded Advance Directives Directive N: Payers Encounter Date Sequence Insurance Name Policy Number Policy Eller Covered Member ID Eller Member ID Guarantor Name 01/14/2023 1 [employer] [place] ON OR AFTER 09/27/2020 (MEDICAID REPLACEMENT - HMO) Charlee Barney [id number] Charlee Barney Notes Date Note Type Note Provider Name and Address Organization Details Recorded Time 01/14/2023 text/html patient complaining of blockage of her ears she thinks she has fluid in her ears been going on and off for the last couple of years. She does have mild nasal congestion and drainage has been started on steroids and intranasal steroids though just recently. She does complain of pressure and pain in her face. Tom Rodriguez MD [address], [place], [address], [facility] 01/14/2023 16:29:20 OBGyn Episode No OBEpisode recorded.
--- OUTSIDE RECORDS SUMMARY | 2024-11-07 23:38 | XMS_ITS | Data Portability ---
Author Organization [employer] , [facility] Address [address] [place] [address] Assessment No assessment recorded. Plan of Treatment Reminders Order Date Submit Date Provider Last Modified By Organization Details Last Modified Time Details Appointments None recorded. Lab test, urine 2021 0 [facility], [address] [place], [address], 11:11:50 lh + FSH, serum 2021 022 [employer] [facility], [address] [place], [address], 18:26:56 HbA1c (hemoglobin A1c), blood 2021 [employer] [facility], [address] [place], [address], 18:26:57 TSH, serum or plasma 2021 [employer] [facility], [address] [place], [address], 18:26:55 testosteron e, free, serum 2021 022 [employer] [facility], [address] [place], [address], 18:26:52 prolactin, serum 2021 [employer] [facility], [address] [place], [address], 18:26:54 unlisted lab - Pap reflex hold 2021 GAMALIEL [facility], [address] [place], [address], 12:03:41 pap, LB 2021 GAMALIEL [facility], [address] [facility], [place], [address], 18:26:53 CT + NG DNA, PCR, unspecified specimen 2021 GAMALIEL [facility], [address] [place], [address], 17:13:20 Referral None recorded. Procedures None recorded. Surgeries None recorded. Imaging US, transvagina l 2021 GAMALIEL Not available 12:48:36 Medication Orders None recorded. Patient TargetsNo targets recorded. Patient Instructions Encounter Date Encounter Id Patient Instructions Last Modified By Organization Details Last Modified Time 12/22/2021 [id number] A healthy lifestyle: care instructions [id number] Not available 12/22/2021 11:11:50 Reason for Referral None Reported. Results Created Date Observation Date Name Description Value Unit Range Abnormal Flag Note LastModifiedBy Organization Detail LastModifiedTime 12/22/1912/25/2021 PAP REFLE X HOLD Pap reflex hold Receiv ed receiv ed Not Available [employer] [address] [place], [address], 12/25/2021 12:03:41 12/22/19 22 12/25/2021 CT/NG chlamydia trachomatis CT neg negati ve If both Pap and Endoc ervic al swabs are colle cted, the Prese rvCyt Solut ion liqui d Pap speci men must be colle cted befor e the endoc ervic al swab speci men. Not Available [employer] [address] [place], [address], 12/25/2021 17:26:34 12/22/19 22 12/25/2021 CT/NG neisseria gonorrhoeae GC neg negati ve If both Pap and Endoc ervic al swabs are colle cted, the Prese rvCyt Solut ion liqui d Pap speci men must be colle cted befor e the endoc ervic al swab speci men. Not Available [facility] [address] [place], [address], 12/25/2021 17:26:34 12/22/19 22 12/25/2021 PAP REFLE X HOLD Pap reflex hold Receiv ed receiv ed Not Available [facility] [address] [place], [address], 12/25/2021 15:19:33 12/22/19 22 12/28/2021 TESTO STERO NE, FREE testosterone , free TNP TEST NOT PERFO RMED No suita ble speci men recei sebastián. Pleas e revie w the test requi remen ts at testd irect ory.q uestd iagno [employer] .com Not Available [employer] [place] [address] [place], [address], 12/28/2021 18:26:52 12/22/19 22 12/28/2021 THINP REP TIS PAP clinical information: normal Infor matio n not provi ded Not Available [employer] [address] [address] [place], [address], 12/28/2021 18:26:53 12/22/19 22 12/28/2021 THINP REP TIS PAP LMP: normal INFOR MATIO N NOT PROVI DED Not Available [facility] [address] [address] [place], [address], 12/28/2021 18:26:53 12/22/19 22 12/28/2021 THINP REP TIS PAP prev. Pap: normal INFOR MATIO N NOT PROVI DED Not Available [employer] [address] [address] [place], [address], 12/28/2021 18:26:53 12/22/19 22 12/28/2021 THINP REP TIS PAP prev. BX: normal INFOR MATIO N NOT PROVI DED Not Available [place] [address] [place], [address], 12/28/2021 18:26:53 12/22/19 22 12/28/2021 THINP REP TIS PAP source: normal Cervi x Not Available [address] [facility], [place], [address], 12/28/2021 18:26:53 12/22/19 22 12/28/2021 THINP REP TIS PAP statement of adequacy: normal Satis facto ry for evalu ation . Endoc ervic al/tr ansfo rmati on zone compo nent prese nt. Age and/o r menst rual statu s not provi ded Not Available [address] , [place], [address], 12/28/2021 18:26:53 12/22/19 22 12/28/2021 THINP REP TIS PAP interpretati on/result: normal Negat justin for intra epith elial lesio n or fabio gaona . Not Available [place] [address] [address] [place], [address], 12/28/2021 18:26:53 12/22/19 22 12/28/2021 THINP REP TIS PAP comment: normal This Pap test has been evalu ated with compu ter [employer] . Not Available [address], [address], 12/28/2021 18:26:53 12/22/19 22 12/28/2021 THINP REP TIS PAP cytotechnolo gist: normal MVB, CT( CP) CT scree prisca locat ion: [place] [address] [place] [address] Not Available [facility] [address], [address], 12/28/2021 18:26:53 12/22/19 22 12/28/2021 THINP REP TIS PAP comment EXPLA NATELIJAH Y NOTE: The Pap is a scree prisca test for cervi courtney cance r. It is not a diagn ostic test and is subje ct to false negat justin and false posit justin resul ts. It is most relia ble when a satis facto ry sampl e, regul kera obtai jacinto, is submi tted with relev ant clini courtney findi ngs and histo ry, and when the Pap resul t is evalu ated along with histo suzy and curre nt clini courtney infor matio n. Not Available [address], [address], 12/28/2021 18:26:53 12/22/19 22 12/28/2021 PROLA CTIN prolactin TNP TEST NOT PERFO RMED No suita ble speci men recei sebastián. Pleas e revie w the test requi remen ts at testd irect ory.q uestd [employer] .com Not Available [address], [address], 12/28/2021 18:26:54 12/22/19 22 12/28/2021 TSH W/REF JHOAN TO FT4 TSH w/reflex to FT4 TNP TEST NOT PERFO RMED No suita ble speci men recei sebastián. Pleas e revie w the test requi remen ts at testd irect ory.q uestd iagno stics .com Not Available [place] [address] [address] [place], [address], 12/28/2021 18:26:55 12/22/19 22 12/28/2021 FSH AND LH FSH TNP TEST NOT PERFO RMED No suita ble speci men recei sebastián. Pleas e revie w the test requi remen ts at testd irect ory.q uestd iagno [facility] .com Not Available [facility] [address] [address] [place], [address], 12/28/2021 18:26:56 12/22/19 22 12/28/2021 FSH AND LH LH TNP TEST NOT PERFO RMED No suita ble speci men recei sebastián. Pleas e revie w the test requi remen ts at testd irect ory.q uestd iagno stics .com Not Available [facility] [address] [address] [place], [address], 12/28/2021 18:26:56 12/22/19 22 12/28/2021 HEMOG LOBIN A1C hemoglobin A1C TNP TEST NOT PERFO RMED No suita ble speci men recei sebastián. Pleas e revie w the test requi remen ts at testd irect ory.q uestd iagno stics .com Not Available [employer] [address] [address] [place], [address], 12/28/2021 18:26:57 12/22/19 22 12/22/2021 pregn kiran test, urine HCG negati ve Not Available [address], [place], [address], 12/22/2021 11:02:24 12/30/19 22 01/01/2022 TESTO STERO NE, FREE testosterone , free 3.9 pg/mL 0.2-5. 0 This test was devel oped and its serenity tical perfo rmanc e pratik cteri stics have been deter mined by [facility]. It has not been clear ed or appro sebastián by the FDA. This assay has been valid ated pursu ant to the CLIA regul ation s and is used for clini courtney purpo ses. Not Available [employer] [facility] [address] [place], [address], 01/01/2022 18:27:31 12/30/19 22 01/01/2022 PROLA CTIN prolactin 5.9 NG/mL normal Refer ence Range Femal es Non-p regna nt 3.0-3 0.0 Pregn ant 10.0- 209.0 Postm enopa usal 2.0-2 0.0 Not Available [facility] [address] [place] [address], [address], 01/01/2022 18:27:32 12/30/19 22 01/01/2022 TSH W/REF JHOAN TO FT4 TSH w/reflex to FT4 1.78 mIU/L normal Refer ence Range > or = 20 Years 0.40- 4.50 Pregn kiran Range s First trime ster 0.26- 2.66 Secon d trime ster 0.55- 2.73 Third trime ster 0.43- 2.91 Not Available [facility] [address], [address], 01/01/2022 18:27:33 12/30/19 22 01/01/2022 FSH AND LH FSH 7.5 mIU/m L normal Refer ence Range Folli cular Phase 2.5-1 0.2 Mid-c ycle Peak 3.1-1 7.7 Lutea l Phase 1.5- 9.1 Postm enopa usal 23.0- 116.3 Not Available [facility] [address], [address], 01/01/2022 18:27:34 12/30/19 22 01/01/2022 FSH AND LH LH 10.4 mIU/m L normal Refer ence Range Folli cular Phase 1.9-1 2.5 Mid-C ycle Peak 8.7-7 6.3 Lutea l Phase 0.5-1 6.9 Postm enopa usal 10.0- 54.7 Not Available [facility] [address] [address] [place], [address], 01/01/2022 18:27:34 12/30/19 22 01/01/2022 HEMOG LOBIN A1C hemoglobin A1C 5.0 %_of_ total _HGB <5.7 normal For the purpo se of alyssa cope for the prese nce of diabe nathen: <5.7% Consi stent with the absen ce of diabe nathen 5.7-6 .4% Consi stent with incre ased risk for diabe nathen (pred iabet es) > or =6.5% Consi stent with diabe nathen This assay resul t is consi stent with a decre ased risk of diabe nathen. Curre ntly, no conse nsus exist s isidro cervantes use of hemog lobin A1c for diagn osis of diabe nathen in child maureen. Accor ding to Ameri can Diabe nathen Assoc iatio n (ADA) guide lines , hemog lobin A1c <7.0% repre sents optim al contr ol in non-p regna nt diabe tic patie nts. Diffe rent metri cs may apply to speci fic patie nt popul ation s. Stand ards of Medic al Care in Diabe nathen(A DA). Not Available [employer] [facility] [address] [place], [address], 01/01/2022 18:27:34 12/29/19 22 12/26/2021 , trans vagin al No observ ation record ed. [place] Not Available 2021 12:48:37 Result Notes None recorded. Problems Name Problem SNOMED Code Status Onset Date Resolution Date Notes Provider Name and Address Organization Details Recorded Time Antenata l screenin g Active 2014 Antenata l screenin g; unspecif ied; Location : None Added By: Ro Yen Add to Current Problems : NO ProblemS tatus: Current Not Available [employer] 2 08:00:25 Primigra nivia [id number] Completed 201412/21/2021 Pregnanc y 1st Normal; Location : None Severity : Moderate Progress : Stable Added By: Peace Burt Add to Current Problems : NO ProblemS tatus: Current JAMES Naqvi [address] [facility], [place], [address] , [place] [facility] [employer] 13:47:24 Problem Notes None recorded. Procedures Surgical History Date Name Laterality Status Provider Name and Address Organization Details Recorded Time extraction of wisdom tooth completed Fay Cobb [facility] [employer] 12/22/2021 10:59:53 Imaging Results Imaging Date Name Status LastModified by Organization Details LastModified Time 12/26/2021 US, transvaginal completed [place] [employer] not available 01/01/2022 12:48:37 Procedure Notes None recorded. Medical Equipment None Reported. Allergies No known drug allergies Medications Name Sig Start Date Stop Date Status Note LastModified by Organization Details LastModified Time amoxicilli n 500 mg capsule active Not Available Not Available Not Available fluconazol e 150 mg tablet 11/30 completed Not Available Not Available Not Available hydrocodon e 5 mg-acetami nophen 325 mg tablet active Not Available Not Available No t Available prednisone 20 mg tablet 12/22 completed Not Available Not Available Not Available hydroxyzin e HCl 50 mg tablet 12/22 completed Not Available Not Available Not Available omeprazole 40 mg capsule,de layed release active Not Available Not Available Not Available Vitamin tablet Take 1 tablet (s) by mouth daily 02/24 completed Multivita min Tablet Allow Substitut ion: True Refill Denied: No Not Available Not Available Not Available ofloxacin 0.3 % ear drops 11/30 completed Not Available Not Available Not Available amoxicilli n 875 mg tablet 11/30 completed Not Available Not Available Not Available ondansetro n 4 mg disintegra ting tablet active Not Available Not Available Not Available cefdinir 300 mg capsule 11/30 completed Not Available Not Available Not Available dicyclomin e 10 mg capsule active Not Available Not Available Not Available neomycin-p olymyxin-h ydrocort 3.5 mg-10,000 unit/mL-1 % ear drops,susp 12/22 completed Not Available Not Available Not Available escitalopr am 20 mg tablet 12/22 completed Not Available Not Available Not Available chlorhexid ine gluconate 0.12 % mouthwash active Not Available Not Available No t Available Vitals Date Recorded Body weight Body mass index (BMI) Body height Systolic blood pressure Diastolic blood pressure Provider Name and Address Organization Details Last Updated DateTime 12/22/2021 44463.66 g 31 kg/m2 160.02 cm 120 mm[Hg] 76 mm[Hg] Fay Cobb [facility] 10:56:32 Social History Question Answer Notes LastModified by Organizat ion Details LastModified Time How Many Children Do You Have? 1 [email or web address] Information not available 12/22/2021 What Is Your Relationship Status? Single [email or web address] Information not available 12/22/2021 Are You Sexually Active? Yes [email or web address] Information not available 12/22/2021 Sex: Unknown Functional Status None recorded. Mental Status None recorded. Family History Relationship Description Onset Age of this Age Resolved Age Notes LastModified by Organization Details LastModified Time Father No current problems or disability [place] [email or web address] Not available 11/29 10:59:36 Mother No current problems or disability [email or web address] Not available 11/29 10:59:36 Medical History Condition Response Other Cancer N High Blood Pressure N Colon Cancer N Cytomegalovirus N Hyperthyroidism N Breast Cancer N Herpes (HSV) N MRSA N Blood Transfusion N Lung Cancer N Hypothyroidism N Depression N Incontinence N Panic Attacks N Neurological Disorder N Deep Vein Thrombosis N Anxiety Disorder N Autoimmune disease N Arthritis N Shingles N Tuberculosis/Positive PPD N Polycystic Ovarian Syndrome N Cervical Cancer N Chlamydia N Hematuria N Varicosities N Stroke N Crohn's Disease N Seasonal allergies N Alzheimer's/Dementia N COPD/Emphysema N Endometriosis N HPV/Genital Warts N IBS (Irritable Bowel Syndrome) N History of Abnormal Pap N High Cholesterol N Liver Disease N Fibromyalgia N Kidney Infection N Ulcer N Kidney Disease N HIV N Gallbladder disease N Sickle Cell Disease/Trait N Von Willebrand disease N ADD/ADHD N Eating Disorder N Anemia N Diabetes Mellitus (non-insulin dependent ) N Multiple Sclerosis N Ovarian Problems N Gonorrhea N Frequent Urinary Tract infections N Osteopenia N Headaches/migraines N GERD (reflux) N Ovarian Cancer N Diabetes (insulin dependent) N Seizures/Epilepsy N Fibroids N Asthma N Heart Attack N Lupus N Endometrial Cancer N Rubella N Blood Clotting Disorder N Bipolar Disorder N Diabetes Mellitus (during ) N Ulcerative Colitis N Hepatitis N Heart Disease N Pulmonary Embolism N RPR N Chicken Pox N Osteoporosis N Gynecological History Statement/Question Response Date of Last Pap Smear Most Recent Mammogram Current Control Method None Age at Menarche 12 Date of LMP 12/14/2021 Obstetrics History GPAL:G 1 P 1 0 0 1 Type Value Full Term 1 Living 1 Total 1 Past Encounters Encounter ID Performer Location Encounter Start Date Encounter Closed Date Diagnosis/Indication Diagnosis SNOMED-CT Code Diagnosis ICD10 Code Diagnosis Note [id number] [facility] [address] [place] [address] 12/22/2021 10:46:45 12/22/2021 11:15:24 Gynecologic examination 71499970 Z01.419 Screening for malignant neoplasm of cervix 119333054 Z12.4 Irregular periods 057067 07 N92.6 Will develop further plan of care depending on lab and u/s results Health Concerns Section Related Observation LastModified by Organization Detai ls LastModified Time None Recorded Concern Status LastModified by Organization Details LastModified Time None Recorded Advance Directives Directive None Recorded Payers Encounter Date Sequence Insurance Name Policy Number Policy Eller Covered Member ID Eller Member ID Guarantor Name 12/22/2021 1 [employer] BETTER [employer] OF [place] ON OR AFTER 09/27/2020 (MEDICAID REPLACEMENT - HMO) Charlee Barney [id number] Charlee Barney Notes Date Note Type Note Provider Name and Address Organization Details Recorded Time 12/22/2021 text/html Annual GYNReport ed bypatient.Menstrua l cycle:Irregular cycle intervals Urinary symptoms:No hematuria; No incontinence Vulva:No genital lesion Vagina:Normal vaginal discharge Breast:No breast pain; No breast lump; No nipple discharge Sexual complaints:No sexual complaints; No pain during intercourse; Normal libido Menopausal Symptoms:No menopausal symptoms; Normal vaginal lubrication Psychological symptoms:No depression; No anxiety; No PMDD Charlee is a new patient here for her AEX. She is also having two periods a month since 05/2020. She has been attempting since that time. She desires GC/CT with her pap JAMES Naqvi [address] [facility], [place], [address], [facility] [employer] 12/22/2021 11:18:30 OBGyn Episode No OBEpisode recorded.
--- OUTSIDE RECORDS SUMMARY | 2024-11-07 23:38 | XMS_ITS | Data Portability ---
Author Organization [place] - [facility] [employer], [facility] Address [address] [place] [address] Care Team Providers Care Organ Recovery Coordinator Name Role Phone KAE TANG Primary Care Provider AMBER QUIROZ Receiving Associate Store Assessment Encounter Date Assessment Date Assessment LastModified by Organization Details LastModified Time 12/03/2023 12/03/2023 Medical decision making was of MODERATE [id number] Number and Complexity of Problems Addressed ? 1 or more chronic illnesses with exacerbation, progression, or side effects of treatment; or ? 2 or more stable chronic illnesses; or ? 1 undiagnosed new problem with uncertain prognosis; or ? 1 acute illness with systemic symptoms; or ? 1 acute complicated injury Amount and/or Complexity of Data to be Reviewed and Analyzed Category 1: Tests, documents, or independent historian(s) Any combination of 3 from the following: ? Review of prior external note(s) from each unique source ? Review of the result(s) of each unique test ? Ordering of each unique test ? Assessment requiring an independent historian(s) or Category 2: Independent interpretation of tests ? Independent interpretation of a test performed by another physician/other qualified health rehab care assistant (not separately reported); or Category 3: Discussion of management or test interpretation Risk of Complications and/or Morbidity or Mortality of Patient Management Moderate risk of morbidity from additional diagnostic testing or treatment Examples only: ? Prescription drug management ? Decision regarding minor surgery with identified patient or procedure risk factors ? Decision regarding elective major surgery without identified patient or procedure risk factors Diagnosis or treatment significantly limited by social determinants of health Not available 12/03/2023 11:05:42 Plan of Treatment Reminders Order Date Submit Date Provider Last Modified By Organization Details Last Modified Time Details Appointments None recorded. Lab CT + NG RNA, PCR, unspecified specimen 2022 023 [facility], [address], [place], [address], 3 17:02:52 CBC w/ auto diff 2023 024 [facility], [address], [place], [address], 4 15:11:15 CMP, serum or plasma 2023 024 [facility], [address], [place], [address], 4 15:11:16 lipid panel, serum 2023 024 [facility], [address], [place], [address], 4 15:11:16 TSH + free T4, serum 2023 024 [facility], [address], [place], [address], 4 15:11:14 vaginal pathogens panel, SARINA+probe, vaginal fluid 2023 024 [facility] [address], [place], [address], 4 12:45:44 prolactin, serum 2023 024 [facility], [address], [place], [address], 4 15:11:19 lh + FSH, serum 2023 024 [facility], [address], [place], [address], 4 15:11:17 estradiol, serum 2023 024 [facility], [address], [place], [address], 4 15:11:20 testosteron e, free + total, serum 2023 024 [facility], [address], [place], [address], 4 15:11:18 progesteron e, serum 2023 024 [facility], [address], [place], [address], 4 15:11:21 insulin, serum 2023 024 [facility], [address], [place], [address], 4 15:11:22 vitamin D, 25-hydroxy, total, serum 2023 024 [facility], [address], [place], [address], 4 15:11:21 acth, plasma 2023 024 [facility], [address], [place], [address], 4 15:11:19 dhea-sulfat e, serum 2023 024 [facility], [address], [place], [address], 4 15:11:18 hepatic function panel, serum 2023 024 [facility], [address], [place], [address], 4 10:36:54 mitochondri al M2 igg Ab, serum 2023 024 [facility], [address], [place], [address], 4 10:10:47 gamma-gluta myl transferase (ggt), serum 2023 024 [facility], [address], [place], [address], 4 10:36:54 autoimmune hepatitis diagnostic panel, serum 2023 024 [facility], [address], [place], [address], 4 10:36:53 Referral gastroenter ologist referral 2022 023 GAMALIEL Quiroz MD, [address] [place] [address], [address], 3 11:00:02 Procedures None recorded. Surgeries None recorded. Imaging CT, abdomen + pelvis, w/ contrast - eGFR 105 2023 024 [facility], [address], [address], [place], [address], 4 17:08:21 Medication Orders omeprazole 40 mg capsule,del ayed release 2022 023 [id number], [address] [place], [address], 3 12:47:42 hyoscyamine ER 0.375 mg tablet,exte nded release,12 hr 2022 023 [facility], [address] [place], [address], 3 10:44:00 omeprazole 40 mg capsule,del ayed release 2022 023 [facility] [address] [place], [address], 3 10:44:00 Claritin 10 mg tablet 2023 024 [facility] [address] [place], [address], 4 10:48:46 hyoscyamine ER 0.375 mg tablet,exte nded release,12 hr 2023 024 [facility] [address] [place], [address], 4 16:17:21 omeprazole 40 mg capsule,del ayed release 2023 024 [facility] [address] [place], [address], 4 16:17:21 Patient TargetsNo targets recorded. Patient Instructions Encounter Date Encounter Id Patient Instructions Last Modified By Organization Details Last Modified Time 07/31/2023 [id number] GERD diet education [email or web address] Not linda ilable 07/31/2023 12:45:28 gastroesophageal reflux disease (GERD): care instructions Not available 07/31/2023 12:45:46 09/03/2023 [id number] PT WITH GERD DOI NG WELL WITH OMEPRAZOLE 40 MG DAILY . CONTINUE SAME . PT WITH IBS-D TRY HYOSCYAMINE .375 MG BID . F/U IN 6 MTHS. [email or web address] Not available 09/03/2023 10:45:19 12/25/2023 [id number] gastroesophageal reflux disease (GERD): care instructions Not available 12/25/2023 16:27:17 01/14/2024 [id number] LOW FAT DIET / EXERCISE . [email or web address] Not available 01/14/2024 13:22:17 PT WITH HEPATIC STEATOSIS . R/O OTHER LIVER DZ WITH MARKERS . F/U IN 3 MTHS . WE WILL CALL HER WITH RESULTS. [email or web address] Not available 01/14/2024 13:22:07 Reason for Referral Receiving Associate Store Referral for Gastroesophageal reflux disease without esophagitis Referring Physician: Kae Tang, Family Medicine, Encounter Date: 07/31/2023 Results Created Date Observation Date Name Description Value Unit Range Abnormal Flag Note LastModifiedBy Organization Detail LastModifiedTime 01/14/20 24 01/15/2024 AMA+A SMA+C ERULO ceruloplasmi n 22.6 mg/dL 19.0-3 9.0 Not Available [facility] ([facility]) [address] [place], [address], 01/15/2024 16:13:46 01/14/20 24 01/15/2024 AMA+A SMA+C ERULO actin (smooth muscle) antibody 14 units 0-19 Negat justin 0 - 19 Weak posit justin 20 - 30 Moder ate to stron g posit justin >30 Actin Antib odies are found in 52-85 % of patie nts with autoi mmune hepat itis or chron ic activ e hepat itis and in 22% of patie nts with prima ry bilia ry cirrh osis. Not Available [facility] ([facility]) [address] [place], [address], 01/15/2024 16:13:46 01/14/20 24 01/15/2024 AMA+A SMA+C ERULO mitochondria l (M2) antibody <20.0 units 0.0-20 .0 Negat justin 0.0 - 20.0 Equiv ocal 20.1 - 24.9 Posit justin >24.9 Mitoc hondr ial (M2) Antib odies are found in 90-96 % of patie nts with prima ry bilia ry cirrh osis. Not Available [facility] ([facility]) [address] [place], [address], 01/15/2024 16:13:46 01/14/20 24 01/15/2024 HEPAT IC FUNCT ION PANEL (7) protein, total 6.9 g/dL 6.0-8. 5 Not Available [facility] ([facility]) [address] [place], [address], 01/15/2024 10:36:54 01/14/20 24 01/15/2024 HEPAT IC FUNCT ION PANEL (7) albumin 4.4 g/dL 4.0-5. 0 Not Available [facility] ([facility]) [address] [place], [address], 01/15/2024 10:36:54 01/14/20 24 01/15/2024 HEPAT IC FUNCT ION PANEL (7) bilirubin, total 0.4 mg/dL 0.0-1. 2 Not Available [facility] ([facility]) [address] [place], [address], 01/15/2024 10:36:54 01/14/20 24 01/15/2024 HEPAT IC FUNCT ION PANEL (7) bilirubin, direct 0.11 mg/dL 0.00-0 .40 Not Available [facility] ([facility]) [address] [facility] [place], [address], 01/15/2024 10:36:54 01/14/20 24 01/15/2024 HEPAT IC FUNCT ION PANEL (7) alkaline phosphatase 58 IU/L 44-121 Not Available [facility] ([facility]) [address] [place], [address], 01/15/2024 10:36:54 01/14/20 24 01/15/2024 HEPAT IC FUNCT ION PANEL (7) AST (SGOT) 16 IU/L 0-40 Not Available [facility] ([facility]) [address] [facility], [place], [address], 01/15/2024 10:36:54 01/14/20 24 01/15/2024 HEPAT IC FUNCT ION PANEL (7) ALT (SGPT) 30 IU/L 0-32 Not Available [facility] ([facility]) [address] [place], [address], 01/15/2024 10:36:54 01/14/20 24 01/15/2024 GGT GGT 16 IU/L 0-60 Not Available [facility] ([facility]) [address] [place], [address], 01/15/2024 10:36:54 01/14/20 24 01/15/2024 TSH+F REE T4 TSH 0.816 uIU/m L 0.450- 4.500 Not Available [facility] ([facility]) [address] [place], [address], 01/17/2024 15:11:14 01/14/20 24 01/15/2024 TSH+F REE T4 T4,free(dire ct) 1.15 NG/dL 0.82-1 .77 Not Available [facility] ([facility]) [address] [place], [address], 01/17/2024 15:11:14 01/14/20 24 01/15/2024 CBC WITH DIFFE RENTI AL/PL ATELE T WBC 6.6 x10e3 /uL 3.4-10 .8 Not Available [facility] ([facility]) [address] [place], [address], 01/17/2024 15:11:15 01/14/20 24 01/15/2024 CBC WITH DIFFE RENTI AL/PL ATELE T RBC 4.66 x10e6 /uL 3.77-5 .28 Not Available [facility] ([facility]) [address] [place], [address], 01/17/2024 15:11:15 01/14/20 24 01/15/2024 CBC WITH DIFFE RENTI AL/PL ATELE T hemoglobin 14.7 g/dL 11.1-1 5.9 Not Available [facility] ([facility]) [address] [facility], [place], [address], 01/17/2024 15:11:15 01/14/20 24 01/15/2024 CBC WITH DIFFE RENTI AL/PL ATELE T hematocrit 43.3 % 34.0-4 6.6 Not Available [facility] ([facility]) [address] [facility], [place], [address], 01/17/2024 15:11:15 01/14/20 24 01/15/2024 CBC WITH DIFFE RENTI AL/PL ATELE T MCV 93 fL 79-97 Not Available [facility] ([facility]) [address] [facility], [place], [address], 01/17/2024 15:11:15 01/14/20 24 01/15/2024 CBC WITH DIFFE RENTI AL/PL ATELE T MCH 31.5 pg 26.6-3 3.0 Not Available [facility] ([facility]) [address] [facility], [place], [address], 01/17/2024 15:11:15 01/14/20 24 01/15/2024 CBC WITH DIFFE RENTI AL/PL ATELE T MCHC 33.9 g/dL 31.5-3 5.7 Not Available [facility] ([facility]) [address] [place], [address], 01/17/2024 15:11:15 01/14/20 24 01/15/2024 CBC WITH DIFFE RENTI AL/PL ATELE T RDW 12.8 % 11.7-1 5.4 Not Available [facility] ([facility]) [address] [place], [address], 01/17/2024 15:11:15 01/14/20 24 01/15/2024 CBC WITH DIFFE RENTI AL/PL ATELE T platelets 351 x10e3 /uL 150-45 0 Not Available [facility] ([facility]) [address] [facility], [place], [address], 01/17/2024 15:11:15 01/14/20 24 01/15/2024 CBC WITH DIFFE RENTI AL/PL ATELE T neutrophils 52 % not estab. Not Available [facility] ([facility]) [address] [facility], [place], [address], 01/17/2024 15:11:15 01/14/20 24 01/15/2024 CBC WITH DIFFE RENTI AL/PL ATELE T lymphs 36 % not estab. Not Available [facility] ([facility]) [address] [facility], [place], [address], 01/17/2024 15:11:15 01/14/20 24 01/15/2024 CBC WITH DIFFE RENTI AL/PL ATELE T monocytes 7 % not estab. Not Available [facility] ([facility]) [address] [facility], [place], [address], 01/17/2024 15:11:15 01/14/20 24 01/15/2024 CBC WITH DIFFE RENTI AL/PL ATELE T eos 4 % not estab. Not Available [facility] ([facility]) [address] [facility], [place], [address], 01/17/2024 15:11:15 01/14/20 24 01/15/2024 CBC WITH DIFFE RENTI AL/PL ATELE T basos 1 % not estab. Not Available [facility] ([facility]) [address] [facility], [place], [address], 01/17/2024 15:11:15 01/14/20 24 01/15/2024 CBC WITH DIFFE RENTI AL/PL ATELE T immature cells RELEASE ENGINEER Not Available [facility] ([facility]) [address] [facility], [place], [address], 01/17/2024 15:11:15 01/14/20 24 01/15/2024 CBC WITH DIFFE RENTI AL/PL ATELE T neutrophils (absolute) 3.5 x10e3 /uL 1.4-7. 0 Not Available [facility] ([facility]) [address] [facility], [place], [address], 01/17/2024 15:11:15 01/14/20 24 01/15/2024 CBC WITH DIFFE RENTI AL/PL ATELE T lymphs (absolute) 2.4 x10e3 /uL 0.7-3. 1 Not Available [facility] ([facility]) [address] [facility], [place], [address], 01/17/2024 15:11:15 01/14/20 24 01/15/2024 CBC WITH DIFFE RENTI AL/PL ATELE T monocytes(ab solute) 0.5 x10e3 /uL 0.1-0. 9 Not Available [facility] ([facility]) [address] [facility], [place], [address], 01/17/2024 15:11:15 01/14/20 24 01/15/2024 CBC WITH DIFFE RENTI AL/PL ATELE T eos (absolute) 0.2 x10e3 /uL 0.0-0. 4 Not Available [facility] ([facility]) [address] [place], [address], 01/17/2024 15:11:15 01/14/20 24 01/15/2024 CBC WITH DIFFE RENTI AL/PL ATELE T baso (absolute) 0.0 x10e3 /uL 0.0-0. 2 Not Available [facility] ([facility]) [address] [facility], [place], [address], 01/17/2024 15:11:15 01/14/20 24 01/15/2024 CBC WITH DIFFE RENTI AL/PL ATELE T immature granulocytes 0 % not estab. Not Available [facility] ([facility]) [address] [facility], [place], [address], 01/17/2024 15:11:15 01/14/20 24 01/15/2024 CBC WITH DIFFE RENTI AL/PL ATELE T immature grans (abs) 0.0 x10e3 /uL 0.0-0. 1 Not Available [facility] ([facility]) [address] [facility], [place], [address], 01/17/2024 15:11:15 01/14/20 24 01/15/2024 CBC WITH DIFFE RENTI AL/PL ATELE T NRBC RELEASE ENGINEER Not Available [facility] ([facility]) [address] [facility], [place], [address], 01/17/2024 15:11:15 01/14/20 24 01/15/2024 CBC WITH DIFFE RENTI AL/PL ATELE T hematology comments: RELEASE ENGINEER Not Available [facility] ([facility]) [address] [facility], [place], [address], 01/17/2024 15:11:15 01/14/20 24 01/15/2024 COMP. METAB OLIC PANEL (14) glucose 78 mg/dL 70-99 Not Available [facility] ([facility]) [address] [facility], [place], [address], 01/17/2024 15:11:16 01/14/20 24 01/15/2024 COMP. METAB OLIC PANEL (14) BUN 13 mg/dL 6-20 Not Available [facility] ([facility]) [address] [facility], [place], [address], 01/17/2024 15:11:16 01/14/20 24 01/15/2024 COMP. METAB OLIC PANEL (14) creatinine 0.63 mg/dL 0.57-1 .00 Not Available [facility] ([facility]) [address], [place], [address], 01/17/2024 15:11:16 01/14/20 24 01/15/2024 COMP. METAB OLIC PANEL (14) eGFR 124 mL/mi n/1.7 3 >59 Not Available [facility] ([facility]) [address], [place], [address], 01/17/2024 15:11:16 01/14/20 24 01/15/2024 COMP. METAB OLIC PANEL (14) BUN/creatini ne ratio 21 9-23 Not Available [facility] ([facility]) [address] [facility], [place], [address], 01/17/2024 15:11:16 01/14/20 24 01/15/2024 COMP. METAB OLIC PANEL (14) sodium 139 mmol/ L 134-14 4 Not Available [facility] ([facility]) [address] [facility], [place], [address], 01/17/2024 15:11:16 01/14/20 24 01/15/2024 COMP. METAB OLIC PANEL (14) potassium 4.3 mmol/ L 3.5-5. 2 Not Available [facility] ([facility]) [address], [place], [address], 01/17/2024 15:11:16 01/14/20 24 01/15/2024 COMP. METAB OLIC PANEL (14) chloride 104 mmol/ L 96-106 Not Available [facility] ([facility]) [address] [facility], [place], [address], 01/17/2024 15:11:16 01/14/20 24 01/15/2024 COMP. METAB OLIC PANEL (14) carbon dioxide, total 20 mmol/ L 20-29 Not Available [facility] ([facility]) [address] [facility], [place], [address], 01/17/2024 15:11:16 01/14/20 24 01/15/2024 COMP. METAB OLIC PANEL (14) calcium 9.4 mg/dL 8.7-10 .2 Not Available [facility] ([facility]) [address] [place], [address], 01/17/2024 15:11:16 01/14/20 24 01/15/2024 COMP. METAB OLIC PANEL (14) protein, total 7.1 g/dL 6.0-8. 5 Not Available [facility] ([facility]) [address], [place], [address], 01/17/2024 15:11:16 01/14/20 24 01/15/2024 COMP. METAB OLIC PANEL (14) albumin 4.3 g/dL 4.0-5. 0 Not Available [facility] ([facility]) [address] [place], [address], 01/17/2024 15:11:16 01/14/20 24 01/15/2024 COMP. METAB OLIC PANEL (14) globulin, total 2.8 g/dL 1.5-4. 5 Not Available [facility] ([facility]) [address] [place], [address], 01/17/2024 15:11:16 01/14/20 24 01/15/2024 COMP. METAB OLIC PANEL (14) A/G ratio 1.5 1.2-2. 2 Not Available [facility] ([facility]) [address] [place], [address], 01/17/2024 15:11:16 01/14/20 24 01/15/2024 COMP. METAB OLIC PANEL (14) bilirubin, total 0.4 mg/dL 0.0-1. 2 Not Available [facility] ([facility]) [address] [place], [address], 01/17/2024 15:11:16 01/14/20 24 01/15/2024 COMP. METAB OLIC PANEL (14) alkaline phosphatase 56 IU/L 44-121 Not Available [facility] ([facility]) [address] [facility] [place], [address], 01/17/2024 15:11:16 01/14/20 24 01/15/2024 COMP. METAB OLIC PANEL (14) AST (SGOT) 19 IU/L 0-40 Not Available [facility] ([facility]) [address] [facility] [place], [address], 01/17/2024 15:11:16 01/14/20 24 01/15/2024 COMP. METAB OLIC PANEL (14) ALT (SGPT) 29 IU/L 0-32 Not Available [facility] ([facility]) [address] [facility] [place], [address], 01/17/2024 15:11:16 01/14/20 24 01/15/2024 LIPID PANEL cholesterol, total 191 mg/dL 100-19 9 Not Available [facility] ([facility]) [address] [facility] [place], [address], 01/17/2024 15:11:16 01/14/20 24 01/15/2024 LIPID PANEL triglyceride s 62 mg/dL 0-149 Not Available [facility] ([facility]) [address] [facility] [place], [address], 01/17/2024 15:11:16 01/14/20 24 01/15/2024 LIPID PANEL HDL cholesterol 51 mg/dL >39 Not Available [facility] ([facility]) [address] [place], [address], 01/17/2024 15:11:16 01/14/20 24 01/15/2024 LIPID PANEL VLDL cholesterol courtney 12 mg/dL 5-40 Not Available [facility] ([facility]) [address] [place], [address], 01/17/2024 15:11:16 01/14/20 24 01/15/2024 LIPID PANEL LDL chol calc (rust) 128 mg/dL 0-99 above high normal Not Available [facility] ([facility]) [address] [place], [address], 01/17/2024 15:11:16 01/14/20 24 01/15/2024 LIPID PANEL comment: RELEASE ENGINEER Not Available [facility] ([facility]) [address] [place], [address], 01/17/2024 15:11:16 01/14/20 24 01/15/2024 FSH AND LH LH 8.6 mIU/m L Adult Femal e Range Folli cular phase 2.4 - 12.6 Ovula tion phase 14.0 - 95.6 Lutea l phase 1.0 - 11.4 Postm enopa usal 7.7 - 58.5 Not Available [facility] ([facility]) [address] [place], [address], 01/17/2024 15:11:17 01/14/20 24 01/15/2024 FSH AND LH FSH 5.5 mIU/m L Adult Femal e Range Folli cular phase 3.5 - 12.5 Ovula tion phase 4.7 - 21.5 Lutea l phase 1.7 - 7.7 Postm enopa usal 25.8 - 134.8 Not Available [facility] ([facility]) [address] [place], [address], 01/17/2024 15:11:17 01/14/20 24 01/15/2024 TESTO STERO NE,FR EE AND TOTAL testosterone 35 NG/dL 13-71 Not Available [facility] ([facility]) [address] [place], [address], 01/17/2024 15:11:18 01/14/20 24 01/17/2024 TESTO STERO NE,FR EE AND TOTAL free testosterone (direct) 2.4 pg/mL 0.0-4. 2 Not Available [facility] ([facility]) [address] [place], [address], 01/17/2024 15:11:18 01/14/20 24 01/15/2024 DHEA- SULFA TE DHEA-sulfate 425.0 ug/dL 84.8-3 78.0 above high normal Not Available [facility] ([facility]) [address] [place], [address], 01/17/2024 15:11:18 01/14/20 24 01/15/2024 ACTH, PLASM A acth, plasma 18.9 pg/mL 7.2-63 .3 ACTH refer ence inter magdi for sampl es colle cted betwe en 7 and 10 AM. Not Available [facility] ([facility]) [address] [place], [address], 01/17/2024 15:11:19 01/14/20 24 01/15/2024 PROLA CTIN prolactin 14.5 NG/mL 4.8-33 .4 Not Available [facility] ([facility]) [address] [place], [address], 01/17/2024 15:11:19 01/14/20 24 01/15/2024 ESTRA DIOL estradiol 95.0 pg/mL Adult Femal e Range Folli cular phase 12.5 - 166.0 Ovula tion phase 85.8 - 498.0 Lutea l phase 43.8 - 211.0 Postm enopa usal <6.0 - 54.7 Pregn kiran 1st trime ster 215.0 - >4300 .0 Clarisa ECLIA metho dolog y Not Available [facility] ([facility]) [address] [place], [address], 01/17/2024 15:11:20 01/14/20 24 01/16/2024 VITAM IN D, 25-HY DROXY vitamin D, 25-hydroxy 27.4 NG/mL 30.0-1 00.0 below low normal Vitam in D defic iency has been defin ed by the Insti tute of Medic ine and an Endoc rine Socie ty pract ice guide line as a level of serum 25-OH vitam in D less than 20 ng/mL (1,2) . The Endoc rine Socie ty went on to furth er defin e vitam in D insuf ficie ncy as a level betwe en 21 and 29 ng/mL (2). 1. IOM (Inst itute of Medic ine). 2010. Dieta ry refer ence intak es for calci um and D. Nate holloway [place]: [facility] . 2. Roddy ware [place], Jimmy dye [place], Hiwot off-F errar i GIORDANO, et al. Evalu ation , treat ment, and preve ntion of vitam in D defic iency : an Endoc rine Socie ty clini courtney pract ice guide line. JCEM. 2010; 96(7) :1911 -30. Not Available [facility] ([facility]) [address] [place], [address], 01/17/2024 15:11:21 01/14/20 24 01/15/2024 PROGE STERO NE progesterone 14.8 NG/mL Folli cular phase 0.1 - 0.9 Lutea l phase 1.8 - 23.9 Ovula tion phase 0.1 - 12.0 Pregn ant First trime ster 11.0 - 44.3 Secon d trime ster 25.4 - 83.3 Third trime ster 58.7 - 214.0 Postm enopa usal 0.0 - 0.1 Not Available [facility] ([facility]) [address] [place], [address], 01/17/2024 15:11:21 01/14/20 24 01/15/2024 INSUL IN insulin 6.9 uIU/m L 2.6-24 .9 Not Available [facility] ([facility]) [address] [place], [address], 01/17/2024 15:11:22 12/16/19 24 12/16/2023 CT, abdom en + pelvi s, w/ contr ast No observ ation record ed. [email or web address] [facility] [address] [place], [address], 12/23/2023 15:38:04 Result Notes None recorded. Problems Name Problem SNOMED Code Status Onset Date Resolution Date Notes Provider Name and Address Organization Details Recorded Time Mixed anxiety and depressive disorder 948059058 Active 2022 Kae Tang NP [address], [place], [address] , [facility] 4 16:16:30 Irritable bowel syndrome with diarrhea 035570584 Active 2022 Kae Tang NP [address], [place], [address] , [facility] 4 16:28:51 Irregular periods 97459294 Active 2023 Kae Tang NP [address] [place], [address] , [facility] 4 16:15:45 Abnormal vaginal odor 18166157 Active 2023 Kae Tang NP [address], [place], [address] , [facility] 4 16:18:39 Bacterial vaginosis 958995899 Active 2023 Kae Tang NP [address], [place], [address] , [facility] 4 13:38:01 Nonalcoholi c steatohepat itis 205639220 Active 2023 Amber Quiroz MD [address] [place] [address], [address] , [facility] 4 13:18:57 Gastroesoph ageal reflux disease without esophagitis 502396030 Active 2021 Follows GI Not Available [facility] 3 15:57:06 Celiac disease 847700978 Active 2021 Kae Tang NP [address], [place], [address] , [facility] 4 16:17:55 Problem Notes Documentation Provider Name and Address Organization Details Recorded Time Receiving Associate Store Consult Note : [facility] ? [address] [facility], [facility] [id number] BARNEY (id #[id number], : 1995) [facility]_[address],? ? ?[place]?[address] Phone:? ? ? Fax:? ? ? Encounter Summary - Progress Note Date Printed: ?09/03/2023 Documents sent via fax will include the followingmessage: This fax may contain sensitive and confidential personal health information that is being sent for the sole use of the intended recipient. Unintended recipients are directed to securely destroy any materials received. You are hereby notified that the unauthorized disclosure or other unlawful use of this fax or any personal health information is prohibited. To the extent patient information contained in this fax is subject to 42 CFR Part 2, this regulation prohibits unauthorized disclosure of these records. If you received this fax in error, please visit [email or web address] to notify the sender and confirm that the information will be destroyed. If you do not have internet access, please call to notify the sender and confirm that the information will be destroyed. Thank you for your attention and cooperation. [ID:[id number]] Patient Charlee Barney (27yo, F) #[id number] 1995 ? ? ? Patient Demographics: Address [address] [facility] [place] [address] ? Work Phone ? ? ? Encounter Notes: Encounter Reason/Date GERD 27yr old female presents for GERD egd done on 01/04/22, also wants a colonoscopy 09/03/2023 - 09:30AM - [facility] History of Present IllnessPT WAS SEEN IN THE OFFICE TODAY FOR GERD F/U . PT REPORTS THAT HER OMEPRAZOLE IS WORKING FOR HER . SHE DENIES PYROSIS . PT REPORTS ABD PAIN THAT PRECEEDS BMs AND RESOLVES . SHE REPORTS MORE DIARRHEA. AFTERWARDS. PT REPORTS THAT SHE IS TRYING TO D/C TOBBACCO USE AND HAS STOPPED DRINKING . PT HAS ANXIETY AND NEEDS TREATMENT . Review of SystemsROS as noted in the HPI Vitals Ht: 5 ft 3 in (160.02 cm) Wt: 177 lbs (80.29 kg) BMI: 31.4 BP: 120/78 sitting R arm T: 97.9 F? ? ? temporal artery (36.61 C) Pulse: 75 bpm O2Sat: 95% Room Air at Rest Pain Scale: 0 Results/InterpretationsNone recorded Physical ExamConstitutional:General Appearance: healthy-appearing, well-nourished, and well-developed. Level of Distress: NAD. Ambulation: ambulating normally. Psychiatric:Insight: good judgement. Mental Status: normal mood and affect and active and alert. Orientation: to time, place, and person. Memory: recent memory normal and remote memory normal. Head:Head: normocephalic and atraumatic. Eyes:Lids and Conjunctivae: no discharge or pallor and non-injected. Pupils: PERRLA. Corneas: grossly intact. Fundoscopic: normal vessels and optic discs, no exudates or hemorrhages, and grossly normal except where noted. EOM: EOMI. Lens: clear. Sclerae: non-icteric. Vision: peripheral vision grossly intact and acuity grossly intact. ENMT:Ears: no lesions on external ear, EACs clear, TMs clear, and TM mobility normal. Hearing: no hearing loss. Nose: no lesions on external nose, septal deviation, sinus tenderness, or nasal discharge and nares patent and nasal passages clear. Lips, Teeth, and Gums: no mouth or lip ulcers or bleeding gums and normal dentition. Oropharynx: no erythema or exudates and moist mucous membranes and tonsils not enlarged. Neck:Neck: supple, FROM, trachea midline, and no masses. Lymph Nodes: no cervical LAD, supraclavicular LAD, axillary LAD, or inguinal LAD. Thyroid: no enlargement or nodules and non-tender. Lungs:Respiratory effort: no dyspnea. Percussion: no dullness, flatness, or hyperresonance. Auscultation: no wheezing, rales/crackles, or rhonchi and breath sounds normal, good air movement, and CTA except as noted. Chest Deformity no pectus carinatum or excavatum; no thoracic deformity, barrel chest, or left sternal bulge; and normal spaced nipples. Cardiovascular:Apical Impulse: not displaced. Heart Auscultation: normal S1 and S2; no murmurs, rubs, or gallops; and RRR. Neck vessels: no carotid bruits. Pulses including femoral / pedal: normal throughout. Abdomen:Bowel Sounds: normal. Inspection and Palpation: no tenderness, guarding, masses, rebound tenderness, or CVA tenderness and soft and non-distended. Liver: non-tender and no hepatomegaly. Spleen: non-tender and no splenomegaly. Hernia: none palpable. Musculoskeletal::Motor Strength and Tone: normal tone and motor strength. Joints, Bones, and Muscles: no contractures, malalignment, tenderness, or bony abnormalities and normal movement of all extremities. Extremities: no cyanosis, edema, varicosities, or palpable cord. Skin:Inspection and palpation: no rash, lesions, ulcer, induration, nodules, jaundice, or abnormal nevi and good turgor. Nails: normal. Back:Thoracolumbar Appearance: normal curvature. Assessment and Plan1. Gastroesophageal reflux disease without cishjgriylkA02.9: Gastro-esophageal reflux disease without esophagitis omeprazole 40 mg capsule,delayed release -TAKE 1 CAPSULE BY MOUTH EVERY DAY ? Qty: (90)?capsule ? Refills: 3 ? Pharmacy: [id number] 2. Irritable bowel syndrome with jvtokjjfQ89.0: Irritable bowel syndrome with diarrhea hyoscyamine ER 0.375 mg tablet,extended release,12 hr -Take 1 tablet(s) every 12 hours by oral route as needed for 30 days. ? Qty: (60)?tablet ? Refills: 2 ? Pharmacy: [id number] 3. Anxiety-PT WOULD BENEFIT FROM A SSRI. PER PCPF41.9: Anxiety disorder, unspecified DiscussionDiscussion NotesPT WITH GERD DOING WELL WITH OMEPRAZOLE 40 MG DAILY . CONTINUE SAME . PT WITH IBS-D TRY HYOSCYAMINE .375 MG BID . F/U IN 6 MTHS. Return to Office Amber Quiroz MD for EST 15 at [facility] on 03/10/2024 at 09:00 AM Patient Medical History: Allergies List Reviewed Allergies NKDA Medications Reviewed Medications NameDate Source ALPRAZolam 0.25 mg tabletTAKE 1 TABLET BY MOUTH EVERY DAY WCUWOV91/30/23?filled surescripts fluticasone propionate 50 mcg/actuation nasal spray,suspensionUSE 2 SPRAYS IN EACH NOSTRIL EVERY DAY01/11/23?filled surescripts hyoscyamine ER 0.375 mg tablet,extended release,12 hrTake 1 tablet(s) every 12 hours by oral route as needed for 30 days.09/03/23?prescribed Amber Quiroz MD ketoconazole 2 % topical cream02/07/23?filled surescripts omeprazole 40 mg capsule,delayed releaseTAKE 1 CAPSULE BY MOUTH EVERY DAY09/03/23?prescribed Amber Quiroz MD meds reviewed 01-09-22 Family HistoryReviewed Family History Mother - Family history of cancer ? ? ? - No current problems or disability Father - No current problems or disability NONE Past Medical History GERD/NAUSEAY HEARTBURN / REFLUXY, GERD Vaccine HistoryReviewed Vaccines Vaccine Type Date Amt. Route Site NDC Lot? ? ?# Mfr. Exp. Date VIS VIS Given Loan Review Manager Diphtheria, Tetanus, Pertussis Tdap 06/23/10 DTaP 06/24/01 [id number] DTaP 06/15/97 DTaP 04/28/96 DTP-Hib 04/28/96 [id number] DTaP 01/09/96 DTP-Hib 01/09/96 [id number] DTaP 95 DTP-Hib 95 [id number] HPV HPV, quadrivalent 07/04/12 Intramuscular 0629AE [employer] 10/10/16 Haemophilus Influenzae Type B Hib 04/28/96 DTP-Hib 04/28/96 [id number] Hib 01/09/96 DTP-Hib 01/09/96 [id number] Hib 95 DTP-Hib 95 [id number] Hepatitis A Hep A, ped/adol, 2 dose 07/04/12 Intramuscular [id number] GlaxoSmithKline 07/26/14 Hepatitis B Hep B, adolescent or pediatric 04/28/96 1191B Hep B, adolescent or pediatric 95 1409A Hep B, adolescent or pediatric 95 Influenza influenza 11/14/02 Measles, Mumps, Rubella MMR 06/24/01 0372L MMR 01/07/97 Meningococcal meningococcal 07/04/12 meningococcal MCV4P 07/04/12 Intramuscular [id number] Sanofi Pasteur 07/16/13 meningococcal 06/23/10 Polio IPV 06/24/01 [id number] IPV 04/28/96 OPV 04/28/96 0732F IPV 01/09/96 OPV 01/09/96 0732D IPV 95 OPV 95 0732D pt denies covid vaccines Electronically Signed by: AMBER QUIROZ MD Kae Tang, RELEASE ENGINEER [address], [place], [address], [facility] 09/03/2023 12:21:10 Receiving Associate Store Consult Note : [facility] ? [address] [place] [id number] BARNEY (id #[id number], : 1995) [facility]_[address],? ? ?[place]?[address] Phone:? ? ? Fax:? ? ? Encounter Summary - Progress Note Date Printed: ?01/14/2024 Documents sent via fax will include the followingmessage: This fax may contain sensitive and confidential personal health information that is being sent for the sole use of the intended recipient. Unintended recipients are directed to securely destroy any materials received. You are hereby notified that the unauthorized disclosure or other unlawful use of this fax or any personal health information is prohibited. To the extent patient information contained in this fax is subject to 42 CFR Part 2, this regulation prohibits unauthorized disclosure of these records. If you received this fax in error, please visit [email or web address] to notify the sender and confirm that the information will be destroyed. If you do not have internet access, please call to notify the sender and confirm that the information will be destroyed. Thank you for your attention and cooperation. [ID:[id number]] Patient Charlee Barney (28yo, F) #[id number] 1995 ? ? ? Patient Demographics: Address [address] [place] [id number] ? Work Phone ? ? ? Encounter Notes: Encounter Reason/Date 6 month follow up 28 y/o female presents for medication/ct f/u 01/14/2024 - 11:45AM - [facility] History of Present IllnessELIZABETH WAS SSEN IN THE OFFICE TODAY FOR A F/U. PT RECENTLY HAD A CT ABD THAT SHOWED HEPATIC STEATOSIS . PT HAS A HX/O DRINKING BUT STOPPED X [address] ABD SHE HAS LOST 10 LBS. PT DOES NOT HAVE DM-2 / LIPID ISSUES .PT REPORTS THAT HYOSCYAMINE HAS HELPED HER ABD PAIN . Review of SystemsROS as noted in the HPI Vitals Ht: 5 ft 3 in (160.02 cm) Wt: 164 lbs (74.39 kg) BMI: 29.1 BP: 116/72 sitting L arm T: 98.2 F? ? ? temporal artery (36.78 C) Pulse: 85 bpm O2Sat: 99% Room Air at Rest Pain Scale: 0 Results/InterpretationsNone recorded Physical ExamConstitutional:General Appearance: well-developed, well-nourished, healthy-appearing, alert, oriented, NAD, and mucous membranes moist. Cardiovascular:Heart Auscultation: no murmurs or click and S1 present, S2 present, and well healed sternal incision. Lungs:Lungs: no wheezing or crackles and clear to auscultation bilaterally. Abdomen:Inspection and Palpation: soft, non-distended, bowel sounds 4 quadrants, and no tenderness. Assessment and Plan1. Nonalcoholic dgpqqpwseltuwokC85.81: Nonalcoholic steatohepatitis (CAST) HEPATIC FUNCTION PANEL (7) MITOCHONDRIAL (M2) ANTIBODY GGT AMA+ASMA+CERULO DiscussionPatient InstructionsLOW FAT DIET / EXERCISE .Discussion NotesPT WITH HEPATIC STEATOSIS . R/O OTHER LIVER DZ WITH MARKERS . F/U IN 3 MTHS . WE WILL CALL HER WITH RESULTS. Return to Office Amber Quiroz MD for EST 15 at [facility] on 04/07/2024 at 11:00 AM Patient Medical History: Allergies List Reviewed Allergies NKDA Medications Reviewed Medications NameDate Source ALPRAZolam 0.25 mg tabletTAKE 1 TABLET BY MOUTH EVERY DAY MCTHVT89/30/23?filled surescripts Claritin 10 mg tabletTake 1 tablet(s) every day by oral route.12/03/23?prescribed Kae Tang NP fluticasone propionate 50 mcg/actuation nasal spray,suspensionUSE 2 SPRAYS IN EACH NOSTRIL EVERY DAY01/11/23?filled surescripts hyoscyamine ER 0.375 mg tablet,extended release,12 hrTake 1 tablet(s) every 12 hours by oral route as needed for 30 days.12/25/23?filled surescripts ketoconazole 2 % topical cream02/07/23?filled surescripts omeprazole 40 mg capsule,delayed releaseTAKE 1 CAPSULE BY MOUTH EVERY DAY01/08/24?filled surescripts meds reviewed 01-09-22 Family HistoryReviewed Family History Mother - Family history of cancer ? ? ? - No current problems or disability Father - No current problems or disability NONE Past Medical History GERD/NAUSEAY HEARTBURN / REFLUXY, GERD Vaccine HistoryReviewed Vaccines Vaccine Type Date Amt. Route Site NDC Lot? ? ?# Mfr. Exp. Date VIS VIS Given Loan Review Manager COVID-19 COVID-19, mRNA, LNP-S, bivalent, PF, 50 mcg/0.5 mL dose (Moderna) 04/01/23 0.5 mL Intramuscular [id number] Modern[employer] [place] Diphtheria, Tetanus, Pertussis Tdap 12/25/23 0.5 mL Intramuscular Deltoid, Right [id number] 35s2s [email or web address] 12/03/25 Tdap 06/02/2021 12/25/23 Audra Rivera Tdap 06/23/10 DTaP 06/24/01 [id number] DTaP 06/15/97 DTaP 04/28/96 DTP-Hib 04/28/96 [id number] DTaP 01/09/96 DTP-Hib 01/09/96 [id number] DTaP 95 DTP-Hib 95 [id number] HPV HPV, quadrivalent 07/04/12 Intramuscular 0629AE [employer] 10/10/16 Haemophilus Influenzae Type B Hib 04/28/96 DTP-Hib 04/28/96 [id number] Hib 01/09/96 DTP-Hib 01/09/96 [id number] Hib 95 DTP-Hib 95 [id number] Hepatitis A Hep A, ped/adol, 2 dose 07/04/12 Intramuscular [id number] GlaxoSmithKline 07/26/14 Hepatitis B Hep B, adolescent or pediatric 04/28/96 1191B Hep B, adolescent or pediatric 95 1409A Hep B, adolescent or pediatric 95 Influenza influenza, injectable, quadrivalent, preservative free 12/03/23 0.5 mL Intramuscular Deltoid, Right [id number] [employer] 04/26/24 Inactivated Influenza 06/02/2021 12/03/23 Audra Nicole influenza 11/14/02 Measles, Mumps, Rubella MMR 06/24/01 0372L MMR 01/07/97 Meningococcal meningococcal 07/04/12 meningococcal MCV4P 07/04/12 Intramuscular [id number] Sanofi Pasteur 07/16/13 meningococcal 06/23/10 Polio IPV 06/24/01 RP042-5 IPV 04/28/96 OPV 04/28/96 0732F IPV 01/09/96 OPV 01/09/96 0732D IPV 95 OPV 95 0732D pt denies covid vaccines Electronically Signed by: AMBER QUIROZ MD Kae Tang, RELEASE ENGINEER [address], [place], [address], [place] [facility] 01/14/2024 18:35:33 Procedures Surgical History Date Name Laterality Status Provider Name and Address Organization Details Recorded Time 01/05/20 22 EGD completed Felecia Keller [facility] 08/15/2023 11:55:30 Removal of ovarian cyst(s) completed Not Available [facility] 11/04/2022 15:55:22 oophorectomy completed Not Available [facility] 11/04/2022 23:41:01 Imaging Results Imaging Date Name Status LastModified by Organiz ation Details LastModified Time 12/16/2023 CT, abdomen + pelvis, w/ contrast completed [email or web address] [place], [address], 12/23/2023 15:38:04 Procedure Notes None recorded. Medical Equipment None Reported. Allergies No known drug allergies Medications Name Sig Start Date Stop Date Status Note LastModified by Organization Details LastModified Time amoxicillin 500 mg capsule 04/24 completed Not Available Not Available Not Available promethazin e-DM 6.25 mg-15 mg/5 mL oral syrup 09/03 completed Not Available Not Available Not Available doxycycline hyclate 100 mg capsule Take 1 capsule twice a day by oral route for 7 days. active Not Available Not Available No t Available azithromyci n 250 mg tablet TAKE 2 TABLETS BY MOUTH TODAY, THEN TAKE 1 TABLET DAILY FOR 4 DAYS 07/31 completed Not Available Not Available Not Available fluconazole 150 mg tablet TAKE 1 TAB BY MOUTH TODAY. REPEAT DOSE IN 3 DAYS 01/22 completed Not Available Not Available Not Available hydrocodone 5 mg-acetamin ophen 325 mg tablet 04/24 completed Not Available Not Available Not Available Claritin 10 mg tablet Take 1 tablet every day by oral route. 2023 active Not Available Not Available Not Avai lable fluconazole 200 mg tablet Take 1 tablet every week by oral route for 14 days. 01/22 completed Not Available Not Available Not Available prednisone 20 mg tablet 07/31 completed Not Available Not Available Not Available metronidazo le 500 mg tablet TAKE 1 TABLET BY MOUTH TWICE A DAY FOR 7 DAYS 01/13 completed Not Available Not Available Not Available hydroxyzine HCl 50 mg tablet Take 1 tablet 3 times a day by oral route as needed. 12/19 completed Not Available Not Available Not Available omeprazole 40 mg capsule,del ayed release TAKE 1 CAPSULE BY MOUTH EVERY DAY active Not Available Not Available No t Available alprazolam 0.5 mg tablet TAKE 0.5 TABLETS BY MOUTH TWICE A DAY NEEDED. 2023 active Not Available Not Available Not Avai lable ofloxacin 0.3 % ear drops INSTILL 10 DROPS INTO AFFECTED EAR(S) ONCE DAILY DIRECTED 02/12 completed Not Available Not Available Not Available amoxicillin 875 mg tablet TAKE 1 TABLET BY MOUTH EVERY 12 HOURS WITH MEALS FOR 7 DAYS 11/02 completed Not Available Not Available Not Available alprazolam 0.25 mg tablet TAKE 1 TABLET BY MOUTH EVERY DAY NEEDED active Not Available Not Available No t Available citalopram 20 mg tablet TK 1 T PO QD 01/02 completed Not Available Not Available Not Available hyoscyamine ER 0.375 mg tablet,exte nded release,12 hr Take 1 tablet every 12 hours by oral route as needed for 30 days. active Not Available Not Available No t Available pantoprazol e 40 mg tablet,anthony yed release TAKES DAILY 09/03 completed Not Available Not Available Not Available nystatin 100,000 unit/gram topical cream 04/24 completed Not Available Not Available Not Available ranitidine 150 mg tablet Take 1 tablet twice a day by oral route. active Not Available Not Available No t Available clotrimazol e-betametha sone 1 %-0.05 % topical cream Apply by topical route for 14 days. 07/17 completed Not Available Not Available Not Available metronidazo le 0.75 % topical cream 04/24 completed Not Available Not Available Not Available methylpredn isolone 4 mg tablets in a dose pack TAKE 6 TABLET (ORAL) THE FIRST DAY AND THE REMAINING DIRECTED 01/22 completed Not Available Not Available Not Available ketoconazol e 2 % topical cream active Not Available Not Available Not Available clobetasol 0.05 % scalp solution 09/03 completed Not Available Not Available Not Available ondansetron 4 mg disintegrat ing tablet Place 1 tablet every 8 hours by transling ual route as needed. 12/19 completed Not Available Not Available Not Available cefdinir 300 mg capsule 04/24 completed Not Available Not Available Not Available fluticasone propionate 50 mcg/actuati on nasal spray,suspe nsion USE 2 SPRAYS IN EACH NOSTRIL EVERY DAY active Not Available Not Available No t Available clotrimazol e 1 % topical cream APPLY TO THE AFFECTED AND SURROUNDI NG AREAS OF SKIN BY TOPICAL ROUTE 2 TIMES PER DAY IN THE MORNING AND EVENING FOR 2-4 WEEKS 02/01 completed Not Available Not Available Not Available dicyclomine 10 mg capsule TAKE ONE CAPSULE FOUR TIMES A DAY. 04/24 completed Not Available Not Available Not Available Hibiclens 4 % topical liquid as directed before surgery 09/03 completed Not Available Not Available Not Available amoxicillin 875 mg-potassiu m clavulanate 125 mg tablet Take 1 tablet every 12 hours by oral route for 10 days. 01/22 completed Not Available Not Available Not Available neomycin-po lymyxin-hyd rocort 3.5 mg-10,000 unit/mL-1 % ear drops,susp INSTILL 4 DROPS INTO AFFECTED EAR(S) BY OTIC ROUTE 3 TIMES PER DAY 04/24 completed Not Available Not Available Not Available azithromyci n 500 mg tablet TK 2 TS PO NOW 11/26 completed Not Available Not Available Not Available escitalopra m 10 mg tablet Take 1 tablet every day by oral route. 10/16 completed Not Available Not Available Not Available escitalopra m 20 mg tablet Take 1 tablet every day by oral route. active Not Available Not Available No t Available Sprintec (28) 0.25 mg-35 mcg tablet Take 1 tablet every day by oral route. 09/17 completed Not Available Not Available Not Available ciprofloxac in 0.3 %-dexametha sone 0.1 % ear drops,suspe nsion INSTILL 4 DROPS INTO AFFECTED EAR(S) TWICE A DAY FOR 7 DAYS 02/01 completed Not Available Not Available Not Available nitrofurant oin monohydrate /macrocryst als 100 mg capsule TAKE 1 CAPSULE BY MOUTH EVERY 12 HOURS FOR 5 DAYS 09/03 completed Not Available Not Available Not Available chlorhexidi ne gluconate 0.12 % mouthwash 04/24 completed Not Available Not Available Not Available Linzess 72 mcg capsule Take 1 capsule every day by oral route. 01/10 completed Not Available Not Available Not Available Vitals Date Recorded Body height Body mass index (BMI) Body weight Body temperature Heart rate Oxygen saturation Oxygen saturation in Arterial blood by Pulse oximetry Respiratory rate Systolic blood pressure Diastolic blood pressure Provider Name and Address Organization Details Last Updated DateTime 3 160.02 cm 31 kg/m2 24635.0 6 g 97.7 [degF] 76 /min 98 % 98 % 17 /min 120 mm[Hg] 72 mm[Hg] Audra Rivera [facility] 3 12:23:07 Date Recorded Body height Body mass index (BMI) Body weight Heart rate Oxygen saturation Oxygen saturation in Arterial blood by Pulse oximetry Body temperature Systolic blood pressure Diastolic blood pressure Provider Name and Address Organization Details Last Updated DateTime 3 160.02 cm 31.4 kg/m2 78467.8 5 g 75 /min 95 % 95 % 97.9 [degF] 120 mm[Hg] 78 mm[Hg] Felecia Krishna [facility] 3 10:17:45 Date Recorded Body height Body mass index (BMI) Body weight Body temperature Heart rate Oxygen saturation Oxygen saturation in Arterial blood by Pulse oximetry Respiratory rate Systolic blood pressure Diastolic blood pressure Provider Name and Address Organization Details Last Updated DateTime 4 160.02 cm 30.9 kg/m2 92973.4 7 g 97.8 [degF] 90 /min 99 % 99 % 17 /min 118 mm[Hg] 72 mm[Hg] Audra [facility] 4 10:41:13 Date Recorded Body height Body mass index (BMI) Body weight Body temperature Heart rate Oxygen saturation Oxygen saturation in Arterial blood by Pulse oximetry Respiratory rate Systolic blood pressure Diastolic blood pressure Provider Name and Address Organization Details Last Updated DateTime 4 160.02 cm 31 kg/m2 45973.6 6 g 98.8 [degF] 94 /min 98 % 98 % 17 /min 120 mm[Hg] 70 mm[Hg] Audra [facility] 4 16:05:26 Date Recorded Body height Body mass index (BMI) Body weight Heart rate Oxygen saturation Oxygen saturation in Arterial blood by Pulse oximetry Body temperature Systolic blood pressure Diastolic blood pressure Provider Name and Address Organization Details Last Updated DateTime 4 160.02 cm 29.1 kg/m2 50448.1 5 g 85 /min 99 % 99 % 98.2 [degF] 116 mm[Hg] 72 mm[Hg] Felecia Keller [facility] 4 13:11:22 Social History Question Answer Notes LastModified by Organizat ion Details LastModified Time Tobacco Smoking Status Current Every Day Smoker Not Available [facility] 11/04/2022 15:55:20 Do You Have An Advance Directive? No [id number] Information not available 11/04/2022 What Is Your Level Of Alcohol Consumption? None [id number] Information not available 11/04/2022 What Is Your Level Of Caffeine Consumption? Occasional [id number] Information not available 11/04/2022 How Much Tobacco Do You Chew? None MIGRATION.[id number] Information not available 11/04/2022 In The 14 Days Before Symptom Onset, Have You Had Close Contact With A Laboratory-confir med COVID-19 While That Case Was Ill? No MIGRATION.563374 2599 Information not available 11/04/2022 In The 14 Days Before Symptom Onset, Have You Had Close Contact With A Person Who Is Under Investigation For COVID-19 While That Person Was Ill? No MIGRATION.743448 1589 Information not available 11/04/2022 Are You Currently Employed? No MIGRATION.747462 2175 Information not available 11/04/2022 What Type Of Diet Are You Following? REGULAR MIGRATION.047150 2327 Information not available 11/04/2022 Which Illicit Or Recreational Drugs Have You Used? Marijuana MIGRATION.894332 5705 Information not available 11/04/2022 Do You Or Have You Ever Used E-cigarettes Or Vape? Never Used Electronic Cigarettes MIGRATION.401081 8343 Information not available 11/04/2022 What Is The Fluoride Status Of Your Home? Unknown MIGRATION.010764 0103 Information not available 11/04/2022 Are You In An Abusive/frighteni ng Relationship? No MIGRATION.731604 2677 Information not available 11/04/2022 Do You Feel Safe At Home Yes [email or web address] Information not available 08/15/2023 Do You Feel Hopeless Or Helpless No [email or web address] Information not available 02/12/2023 Have You Had Thoughts Of Suicide? No MIGRATION.099015 2162 Information not available 11/04/2022 Are You Having Any Suicidal Thoughts Now? No MIGRATION.001770 0505 Information not available 11/04/2022 Have You Previously Attempted Suicide? No MIGRATION.765699 8509 Information not available 11/04/2022 Has A Family Member Or Someone Close To You Committed Suicide Or Have You Been A Witness To Suicide? No MIGRATION.383711 0688 Information not available 11/04/2022 Have You Fallen In The Last 3 Months? No MIGRATION.493717 8099 Information not available 11/04/2022 Do You Have A Plan To Hurt Yourself Or Others? No MIGRATION.189094 3995 Information not available 11/04/2022 Do You Feel Hopeless Or Helpless? No MIGRATION.001651 8923 Information not available 11/04/2022 What Was The Date Of Your Most Recent Tobacco Screening? 01/14/2024 [email or web address] Information not available 01/14/2024 What Is Your Relationship Status? Single MIGRATION.131611 4149 Information not available 11/04/2022 Do You Have Smoke And Carbon Monoxide Detectors In Your Home? Yes MIGRATION.675511 2450 Information not available 11/04/2022 Are You Passively Exposed To Smoke? Yes MIGRATION.558470 3830 Information not available 11/04/2022 Do You Or Have You Ever Used Smokeless Tobacco? Never Used Smokeless Tobacco MIGRATION.856229 7284 Information not available 11/04/2022 Are There Any Smokers In Your House? Yes MIGRATION.256500 5379 Information not available 11/04/2022 How Much Tobacco Do You Smoke? 0.25 PPD MIGRATION.412391 0339 Information not available 11/04/2022 Do You Participate In Social Media? Yes MIGRATION.247672 4756 Information not available 11/04/2022 Do You Use Any Illicit Or Recreational Drugs? No MIGRATION.985464 2257 Information not available 11/04/2022 Has Tobacco Cessation Counseling Been Provided? No MIGRATION.849370 2245 Information not available 11/04/2022 Have You Recently Traveled Abroad? No MIGRATION.020585 0882 Information not available 11/04/2022 Do You Have Any Dietary Restrictions? No MIGRATION.040495 2146 Information not available 11/04/2022 Do You Or Have You Ever Used Any Other Forms Of Tobacco Or Nicotine? No MIGRATION.835376 4964 Information not available 11/04/2022 Sex: Female Functional Status Question Answer Note LastModified by [employer] Details LastModified Time Do you have difficulty walking or climbing stairs? No MIGRATION.[id number] 01 Information not available 11/04/2022 What is your exercise level? Moderate MIGRATION.22426576 00 Information not available 11/04/2022 Mental Status Question Answer Note LastModified by [email or web address] Details LastModified Time Do you have difficulty concentrating, remembering or making decisions? No MIGRATION.[id number] 1 Information not available 11/04/2022 Family History Relationship Description Onset Age of this Age Resolved Age Notes LastModified by Organization Details LastModified Time Mother Family history of malignant neoplasm MIGRATION.[id number] Not available 11/04/2022 15:55:22 Mother No current problems or disability MIGRATION.630 [id number] Not available 11/04/2022 23:39:43 Father No current problems or disability MIGRATION.465 [id number] Not available 11/04/2022 23:39:43 Notes:NONE Medical History Condition Response GERD/NAUSEA Y HEARTBURN / REFLUX Y Gynecological History Statement/Question Response Date of Last Pap 10/28/2021 Date of LMP 12/01/2023 Obstetrics History GPAL:G 0 P 0 0 0 0 Immunizations Vaccine Type Date Status Note Provider Nam e and Address Organization Details Recorded Time Influenza, split virus, quadrivalent, PF 4 completed Kae Tang, RELEASE ENGINEER [address], [place], [address], [place] [facility] 12/03/2023 11:01:15 Tdap 4 completed Audra Rivera null, [facility] 12/25/2023 17:03:16 DTaP, unspecified formulation 7 completed Not Available [facility] 11/04/2022 15:58:22 MMR 7 completed Not Available [facility] 11/04/2022 15:58:22 DTaP, unspecified formulation 6 completed Ally Casarez null, [facility] 11/14/2023 12:42:49 IPV 6 completed Ally Casarez null, [facility] 11/14/2023 12:42:48 Hep B, adolescent or pediatric 6 completed Vilma Velez null, [facility] 03/22/2023 10:25:02 Hib, unspecified formulation 6 gaby Casarez null, [facility] 11/14/2023 12:42:48 Hib, unspecified formulation 6 gaby Casarez null, [facility] 11/14/2023 12:42:48 DTaP, unspecified formulation 6 gaby Casarez null, [facility] 11/14/2023 12:42:49 IPV 6 gaby Casarez null, [facility] 11/14/2023 12:42:48 DTaP, unspecified formulation 6 gaby Casarez null, [facility] 11/14/2023 12:42:49 IPV 6 gaby Casarez null, [facility] 11/14/2023 12:42:48 Hep B, adolescent or pediatric 6 completed Vilma Velez null, [facility] 03/22/2023 10:25:02 Hib, unspecified formulation 6 completed Ally Casarez null, [facility] 11/14/2023 12:42:48 Hep B, adolescent or pediatric 5 completed Not Available [facility] 11/04/2022 15:58:23 meningococcal ACWY, unspecified formulation 2 completed Ally Casarez null, [facility] 11/14/2023 12:42:48 Hep A, ped/adol, 2 dose 2 completed Vilma Velez null, [facility] 03/22/2023 10:25:02 Tdap 0 completed Not Available [facility] 11/04/2022 15:58:24 meningococcal ACWY, unspecified formulation 0 completed Not Available [facility] 11/04/2022 15:58:24 influenza, unspecified formulation 3 completed Not Available [facility] 11/04/2022 15:58:24 MMR 1 completed Vilma Hayleemann null, [facility] 03/22/2023 10:25:02 IPV 1 completed Vilma Hermelindazemann null, [facility] 03/22/2023 10:25:02 OPV 6 completed Vilma Hayleemann null, [facility] 03/22/2023 10:25:02 OPV 6 completed Vilma Hitzemann null, [facility] 03/22/2023 10:25:02 OPV 6 completed Vilma Hermelindazemann null, [facility] 03/22/2023 10:25:02 DTP-Hib 6 completed Vilma Hermelindazemann null, [facility] 03/22/2023 10:25:02 DTP-Hib 6 completed Vilma Hermelindazemann null, [facility] 03/22/2023 10:25:02 DTP-Hib 6 completed Vilma Velez null, [facility] 03/22/2023 10:25:02 HPV, quadrivalent 2 completed Vilma Velez null, [facility] 03/22/2023 10:25:02 meningococcal MCV4P 2 completed Vilma Velez null, [facility] 03/22/2023 10:25:02 DTaP 1 completed Vilma Velez null, [facility] 03/22/2023 10:25:02 COVID-19, mRNA, LNP-S, bivalent, PF, 50 mcg/0.5 mL or 25mcg/0.25 mL dose 3 completed Ally Casarez null, [facility] 11/14/2023 12:42:49 influenza, unspecified formulation 4 completed Conchita Cox null, [facility] 09/29/2024 15:45:55 Past Encounters Encounter ID Performer Location Encounter Start Date Encounter Closed Date Diagnosis/Indication Diagnosis SNOMED-CT Code Diagnosis ICD10 Code Diagnosis Note [id number] [facility] [place] [address] [facility] [address] 10/16/2021 00:00:00 10/16/2021 14:59:01 [id number] DIPC_[facility] [place] [address] [facility] [address] 04/24/2022 00:00:00 04/24/2022 10:28:45 [id number] DIPC_[facility] [place] [address] [facility] [address] 07/11/2022 00:00:00 07/11/2022 13:17:28 [id number] DIPC_[facility] [place] [address] [facility] [address] 09/11/2022 00:00:00 09/11/2022 16:56:33 [id number] DIPC_[facility] [place] [address] [place] [address] 11/02/2022 00:00:00 11/02/2022 15:39:29 [id number] DIRB_Red [address] [address] 02/13/2021 00:00:00 02/13/2021 19:26:11 [id number] DIRB_[address] [address] 02/21/2021 00:00:00 02/21/2021 12:15:48 [id number] [facility] [address] 04/11/2021 00:00:00 04/11/2021 18:55:[id number] [address] 05/31/2021 00:00:00 06/02/2021 12:48:56 [id number] [facility] [address] 11/10/2021 00:00:00 11/11/2021 02:08:45 [id number] [facility] [address] 12/19/2021 00:00:00 12/19/2021 10:44:16 [id number] [facility] [address] 01/09/2022 00:00:00 01/09/2022 11:05:11 [id number] [facility] [address] 09/04/2022 00:00:00 09/04/2022 21:26:44 [id number] aKe Tang NP DIPC_RB [address] [address] 01/22/2023 12:44:11 01/22/2023 13:07:44 Failure to lose weight [id number] R63.8 Check labs as ordered. Aware to complete prior to 10 am. [id number] Amber Quiroz MD [address] [address] 02/12/2023 12:35:40 02/12/2023 13:26:33 Irritable bowel syndrome with diarrhea [id number] K58.0 [id number] ONI Rivera_RB [address] [address] 03/22/2023 10:20:05 03/22/2023 10:41:59 Dysuria 70486021 R30.0 Patient's UA is suggestive of UTI today. Will send urine culture and start treatment with antibiotic s as below. Patient advised of and expressed understand ing of possible side effects.Dr islas plenty of fluids to help flush the bacteria out of your system, avoid caffeine - soda/coffe e/tea.Urin ate more frequently and ensure your bladder is completely emptied.Av oid baths, shower when able.When using the restroom, wipe from front to back.Urina te before and after intercours e.Wear cotton underwear. Avoid wearing wet swimsuit/c lothing for hours a day, change when out of the water or after exercising . Vaginal swab obtained to rule out STI's as pt does have a new sexual partner. [id number] Katlyn Piña MD DIR_[address] [address] 04/01/2023 11:01:42 04/02/2023 06:55:43 Hemorrhoids 68082471 K64.9 This is a pleasant 27 year old woman with IBS, who was referred to clinic for external hemorrhoid s. She does use the bathroom several times a day, about 5 times a day, mostly loose. She describes mostly pain around the anus that has been present for the past 7 years. One exam, she has a small external hemorrhoid al skin tag at the 9 o'clock position. I offered excisional hemorrhoid ectomy and we discussed the risks, benefits, and alternativ es of the procedure including but not limited to pain, bleeding, infection, injury to adjacent structures , and the need for further procedures , and she verbalized understand ing and wishes to proceed. all questions/ concerns addressed. [id number] ONI Rivera_RB [address] [address] 07/31/2023 12:12:41 07/31/2023 13:00:04 Abnormal vaginal odor 20904095 N89.8 [facility] vaginal swab obtained by pt. Will determine POC once results obtained-a void sexual activity until results are known. Gastroesop hageal reflux disease without esophagitis 925868412 K21.9 Requesting referral to GI closer to home as she recently moved, will send. GERD diet reviewed at length, avoid triggers. Take medication s daily as Rx. Elevate head at bedtime prn. Reviewed risk vs benefits of chronic PPI use including but not limited to: increased risk for osteoporos is/fx, dementia, kidney disease, and C diff infections . [id number] Amber Quiroz MD DIRB_[address] [address] 09/03/2023 09:59:32 09/03/2023 11:20:17 Gastroesophageal reflux disease without esophagitis 987206223 K21.9 Irritable bowel syndrome with diarrhea 929628671 K58.0 Anxiety 77125800 F41.9 PT WOULD BENEFIT FROM A SSRI. PER PCP [id number] Kae Tang NP DIPC_RB [address] [address] 12/03/2023 10:32:05 12/03/2023 12:41:13 Pain in pelvis 28091740 R10.[address] to further eval. Abdominal pain 54031236 R10.[address] to further eval. Pelvic pain-no pain noted upon exam to sides of abdomen as pt reports. Allergic rhinitis 022671 04 J30.9 Requesting script, will send. Aware that insurance may not cover. Administra tion of influenza vaccine 09720040 Z23 FLU vaccine updated, pt tolerated well. Mastodynia of bilateral breasts [id number] 3762229 N64.4 Onset about 1-2 weeks ago. Due to start period today. Aware to f/u if pain persists as it may be hormone related. [id number] Kae Tang NP DIPC_RB A [address] [address] 12/25/2023 15:56:03 12/25/2023 16:37:06 Adult health examination 011790927 Z00.00 Normal exam. Will order screening labs. F/U in 1 year for wellness. Gastroesop hageal reflux disease without esophagitis 469989484 K21.9 GERD diet reviewed at length, avoid triggers. Take medication s daily as Rx. Elevate head at bedtime prn. Reviewed risk vs benefits of chronic PPI use including but not limited to: increased risk for osteoporos is/fx, dementia, kidney disease, and C diff infections . Notify if sx worsen or change-may need to have further evaluation by GI. Administra tion of diphtheria, pertussis, and tetanus vaccine 986123868 Z23 Tdap updated, pt tolerated well. Irregular periods 992333 07 N92.6 Check labs as ordered below. Aware to complete prior to 10 am. 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 Doing well at this time without the use of meds. F/U PRN. Irritable bowel syndrome with diarrhea 033116999 K58.0 Doing well at this time on current meds, will refill. F/U with GI as directed. Abnormal vaginal odor 62 176679 N89.8 [facility] vaginal swab obtained by pt. Will determine POC once results obtained-a void sexual activity until results are known. Body mass index 30+ - obesity 586012423 Z68.31 BMI 31.0. Encouraged healthy diet and exercise. [id number] Amber Quiroz MD [facility]_[address] [address] 01/14/2024 12:21:36 01/14/2024 14:20:37 Nonalcoholic steatohepatitis 282209284 K75.81 Health Concerns Section Related Observation LastModified by Organization Detai ls LastModified Time None Recorded Concern Status LastModified by Organization Details LastModified Time None Recorded Advance Directives Directive N: Payers Encounter Date Sequence Insurance Name Policy Number Policy Eller Covered Member ID Eller Member ID Guarantor Name 07/31/2023 1 [employer] [place] ON [place] AFTER 2020 (MEDICAID REPLACEMENT - HMO) Charlee Barney [id number] Charlee Barney 09/03/2023 1 [employer] [place] ([place]ICAID REPLACEMENT - [place]MO) Charlee Neumann Ector [id number] Charlee Neumann Ector 12/03/2023 1 [facility] [id number] Charlee Neumann Barney [id number] Charlee Neumann Barney 12/25/2023 1 [facility] [id number] Charlee Barney [id number] Charlee Neumann Barney 01/14/2024 1 [facility] [id number] Charlee Neumann Barney [id number] Charlee Neumann Ector Notes Date Note Type Note Provider Name and Address Organization Details Recorded Time 07/31/2023 text/html 27 y/o female presents to the office to discuss STD testing. Reports going to the ER last week and tested negative for a UTI but she feels like something is not right in her vaginal region. States that she has noticed a foul vaginal odor. No changes in vaginal discharge, no pelvic discomfort. She is sexually active. She is also requesting referral to a new GI specialist for her GERD as she recently moved and Dr. Quiroz is [place] far drive for her. Kae Tang NP [address] [place] [address], [phone], [facility] 07/31/2023 13:39:07 09/03/2023 text/html PT WAS SEEN IN THE OFFICE TODAY FOR GERD F/U . PT REPORTS THAT HER OMEPRAZOLE IS WORKING FOR HER . SHE DENIES PYROSIS . PT REPORTS ABD PAIN THAT PRECEEDS BMs AND RESOLVES . SHE REPORTS MORE DIARRHEA. AFTERWARDS. PT REPORTS THAT SHE IS TRYING TO D/C TOBBACCO USE AND HAS STOPPED DRINKING . PT HAS ANXIETY AND NEEDS TREATMENT . Amber Quiroz MD [address] [place] [address], [phone], [facility] 09/03/2023 10:47:53 12/03/2023 text/html 28 y/o female presents to the office with complaints of lower pelvic pain and pain to the sides of her abdominal region. Reports symptoms have been present for about a month now. She did go to and her UA was negative. Denies any urinary symptoms. States her pain is a constant dull ache. Sometimes the pain will feel like pin needles. Denies any bowel changes. She has noticed some bilateral breast pain over the past 1-2 weeks but she is due to start her period today. Denies any breast changes or nipple discharge. She is requesting Claritin as a script for her allergies. She would also like her flu vaccine today. She does mention that she may be switching providers due to how far she drives. She has yet to find another one at this time. Kae Tang NP [address] [place], [address], [facility] 12/03/2023 11:08:54 12/25/2023 text/html Patient presents for her annual wellness exam. She is up to date on pap, sees RADIOGRAPHY TECHNICIAN. She is due for screening labs. Diet and exercise could be better. She is up to date on vaccinations, as far as she knows. Will update Tdap today. Follows GI on a routine basis. Her acid reflux is well controlled at this time. She would like hormonal testing completed. States that she usually has 2 periods in one month. This has been on going issue but for peace of mind, she wants further testing. She does mention abnormal vaginal smell that typically occurs around ovulation. She always has vaginal discharge so unsure if something else is doing on. She would like a vaginal swab completed today. No other concerns today. Kae Tang NP [address], [place], [address], [facility] 12/25/2023 16:32:06 01/14/2024 text/html CHARLEE WAS SSEN IN THE OFFICE TODAY FOR A F/U. PT RECENTLY HAD A CT ABD THAT SHOWED HEPATIC STEATOSIS . PT HAS A HX/O DRINKING BUT STOPPED X [address] ABD SHE HAS LOST 10 LBS. PT DOES NOT HAVE DM-2 / LIPID ISSUES .PT REPORTS THAT HYOSCYAMINE HAS HELPED HER ABD PAIN . Amber Quiroz MD [address] [place] [address], [phone], [facility] 01/14/2024 13:24:03 OBGyn Episode No OBEpisode recorded.
== END 2024-10-31 16:34 | disposition home or self-care (01) ==
PROVIDERS: Emergency Provider Nurse Practitioner Family
DX: N89.8 Other specified noninflammatory disorders of vagina (principal); R10.2 Pelvic and perineal pain; F12.90 Cannabis use, unspecified, uncomplicated; Z87.891 Personal history of nicotine dependence
CPT/HCPCS: 81003; 81513; 87070; 87491; 87591; 87661; 96372; 99214; G0463; J0696; J2003